=== PATIENT | female | born 1995 | race African-American/Black ===

== ENCOUNTER 2022-12-10 12:32 | Outpatient (OUT) | payer OTHER, SELFPAY ==
--- NOTE | 2022-12-10 12:34 | US_ITS ---
[address] [address] Patient Name: DIYA MITCHELL MRN: [id number] date: 1995 Sex: F Assigned Patient Location: Current Patient Location: US Accession/Order Number: [id number] Exam Date: 12/10/2022 12:36 Report Date: 12/10/2022 19:20 At the request of: ANDRÉS MENDEZ Procedure: US OB <= 14 weeks fetus EXAMINATION: US OB <= 14 weeks fetus HISTORY: Positive test COMPARISON: No relevant comparison available. FINDINGS: GESTATIONAL SAC: Present and normal appearing. YOLK SAC: Present and normal appearing. POLE: Present and normal appearing. CARDIAC: Present. UTERUS: Normal size and appearance. OVARIES: Right: Not seen. Left: Normal. CERVIX: 4.0 cm in length and closed. CUL-DE-SAC: Normal. OTHER: None. AGE BY LMP: Unknown LMP ROHINI BY LMP: AGE BY US CRL: 11 weeks 4 days ROHINI BY US CRL: 06/27/2023 US/US OB <= 14 weeks fetus IMPRESSION: 1. Single live intrauterine 11 weeks 4 days by today's ultrasound. Electronically authenticated by: DAVE MENDOZA Date: 12/10/2022 19:20
== END 2022-12-10 12:33 | disposition home or self-care (01) ==
LOC: US 12:32
PROVIDERS: Visit Provider Obstetrics & Gynecology
DX: N92.5 Other specified irregular menstruation (principal); Z33.1 Pregnant state, incidental
CPT/HCPCS: 76801

== ENCOUNTER 2023-01-27 11:04 | Outpatient (OUT) | payer OTHER, SELFPAY ==
[2023-01-27 11:39] LABS: Basophils Percent Auto 0.5 % (0.2-2.0); Eosinophils Absolute Auto 0.1 10^3/uL (0.0-0.7); Eosinophils Percent Auto 1.6 % (0.9-7.0); Hematocrit 34.4 % (36.0-48.0); Hemoglobin 11.5 g/dL (12.0-16.0); Immature Granulocytes Abs Auto 0.01 10^3/uL (0.00-0.03); Immature Granulocytes Pct Auto 0.1 % (0.0-0.5); Mean Corpuscular HGB Conc 33.4 g/dL (29.9-35.2); Mean Corpuscular Volume 86.9 fL (81.0-99.0); Mean Platelet Volume 10.7 fL (9.5-13.5); Monocytes Absolute Auto 0.5 10^3/uL (0.3-0.8); Monocytes Percent Auto 6.1 % (1.7-12.0); Neutrophils Percent Auto 65.7 % (43.0-75.0); Platelet Count 226 10^3/uL (150-450); Red Blood Count 3.96 10^6/uL (4.20-5.40); Red Cell Distribution Width 12.4 % (11.0-15.0); White Blood Count 7.6 10^3/uL (4.0-11.0)
[2023-01-27 11:46] LABS: Estimated Average Glucose 94 mg/dL; Glycohemoglobin A1C 4.9 % (4.5-6.2)
[2023-01-27 11:48] LABS: BOX Test Sent Out Y
[2023-01-27 12:39] LABS: Thyroid Stimulating Hormone 1.622 uIU/mL (0.358-3.740)
[2023-01-28 06:09] LABS: HBsAg Screen Negative (Negative); HCV Ab Non Reactive (Non Reactive); HIV Ab/p24 Ag Screen Non Reactive (Non Reactive); Rubella Antibodies, IgG 1.57 index (Immune >0.99)
[2023-01-28 12:11] LABS: Rapid Plasma Reagin, Quant Non Reactive titer (NonRea<1:1)
== END 2023-01-27 11:05 | disposition home or self-care (01) ==
LOC: LAB 11:08
PROVIDERS: Visit Provider Obstetrics & Gynecology
DX: Z34.80 Encounter for supervision of other normal pregnancy, unspecified trimester (principal); Z12.4 Encounter for screening for malignant neoplasm of cervix; N92.6 Irregular menstruation, unspecified
CPT/HCPCS: 36415; 83036; 84443; 85025; 86592; 86762; 86803; 86850; 86900; 86901; 87086; 87150; 87186; 87340; 87389; G0145

== ENCOUNTER 2023-01-27 20:47 | Outpatient (REF) | payer OTHER, SELFPAY ==
[2023-02-03 14:09] LABS: Age Gdln ACOG Testing Note (.); IGP, rfx Aptima HPV ASCU Note (.)
== END 2023-01-27 20:48 | disposition home or self-care (01) ==
LOC: LAB 20:47
PROVIDERS: Visit Provider Obstetrics & Gynecology
DX: Z12.4 Encounter for screening for malignant neoplasm of cervix (principal)
CPT/HCPCS: G0145

== ENCOUNTER 2023-02-24 12:34 | Outpatient (OUT) | payer OTHER, SELFPAY ==
--- NOTE | 2023-02-24 13:01 | US_ITS ---
[address] [address] Patient Name: DIYA MITCHELL MRN: [id number] date: 1995 Sex: F Assigned Patient Location: US Current Patient Location: Accession/Order Number: [id number] Exam Date: 02/24/2023 13:02 Report Date: 02/25/2023 07:19 At the request of: ANDRÉS MENDEZ Procedure: US OB anatomy EXAMINATION: US OB anatomy, US OB transvaginal HISTORY: Second Trimester Z34.92 COMPARISON: No relevant comparison available. TECHNIQUE: Transabdominal sonographic examination was performed for obstetrical and evaluation. FINDINGS: Number: 1 Heart Rate: 140.6 bpm H.B. /min Amniotic Fluid Volume: Subjectively normal position: Cephalic presentation, longitudinal lie Placental Location: Anterior fundal, grade 0. Placental edge 10 cm from the internal cervical os Cervix Length: 4.9 cm ] Normal anatomy: Lateral ventricles, cerebellum, posterior fossa, nose, lips, orbits, four-chamber heart, RVOT, LVOT, diaphragm, stomach, kidneys, abdominal cord insertion, bladder, umbilical arteries, three-vessel cord, spine, extremities BIOMETRY: BPD: 5.9 cm 24 weeks 0 days , 93% HC: 21.6 cm 23 weeks 4 days, 83% AC: 21.1 cm 25 weeks 4 days, > 97% FL: 4.1 cm 23 weeks 2 days, 69% EFW:701.4 grams; 1 lb. 9 oz., > 97% FL/AC: 19.5 FL/BPD: 70.0 HC/AC: 1.0 GESTATIONAL AGE: Age by EDC: 22 weeks 3 days ROHINI by EDC: 06/27/2023 Age by current US: 24 weeks 1 days ROHINI by current US: 06/15/2023 US/US OB anatomy IMPRESSION: Normal anatomy scan Closed cervix measuring 4.9 cm in length *Reference: [facility] Practice Guideline for the performance of Obstetric Ultrasound Examinations, February 07, 2007. Electronically authenticated by: HEAVEN ROOT Date: 02/25/2023 07:19
--- NOTE | 2023-02-24 13:02 | US_ITS ---
[address] [address] Patient Name: DIYA MITCHELL MRN: [id number] date: 1995 Sex: F Assigned Patient Location: US Current Patient Location: Accession/Order Number: [id number] Exam Date: 02/24/2023 13:02 Report Date: 02/25/2023 07:19 At the request of: ANDRÉS MENDEZ Procedure: US OB transvaginal EXAMINATION: US OB anatomy, US OB transvaginal HISTORY: Second Trimester Z34.92 COMPARISON: No relevant comparison available. TECHNIQUE: Transabdominal sonographic examination was performed for obstetrical and evaluation. FINDINGS: Number: 1 Heart Rate: 140.6 bpm H.B. /min Amniotic Fluid Volume: Subjectively normal position: Cephalic presentation, longitudinal lie Placental Location: Anterior fundal, grade 0. Placental edge 10 cm from the internal cervical os Cervix Length: 4.9 cm ] Normal anatomy: Lateral ventricles, cerebellum, posterior fossa, nose, lips, orbits, four-chamber heart, RVOT, LVOT, diaphragm, stomach, kidneys, abdominal cord insertion, bladder, umbilical arteries, three-vessel cord, spine, extremities BIOMETRY: BPD: 5.9 cm 24 weeks 0 days , 93% HC: 21.6 cm 23 weeks 4 days, 83% AC: 21.1 cm 25 weeks 4 days, > 97% FL: 4.1 cm 23 weeks 2 days, 69% EFW:701.4 grams; 1 lb. 9 oz., > 97% FL/AC: 19.5 FL/BPD: 70.0 HC/AC: 1.0 GESTATIONAL AGE: Age by EDC: 22 weeks 3 days ROHINI by EDC: 06/27/2023 Age by current US: 24 weeks 1 days ROHINI by current US: 06/15/2023 US/US OB transvaginal IMPRESSION: Normal anatomy scan Closed cervix measuring 4.9 cm in length *Reference: [facility] Practice Guideline for the performance of Obstetric Ultrasound Examinations, February 07, 2007. Electronically authenticated by: HEAVEN ROOT Date: 02/25/2023 07:19
[2023-08-06 11:00] LABS: Gest. Age on Collection Date 22.4 weeks; Results Report
[2023-08-06 11:02] LABS: Insulin Dep Diabetes No; OSBR Risk 1 IN 10000
== END 2023-02-24 12:35 | disposition home or self-care (01) ==
LOC: US 12:36
PROVIDERS: Visit Provider Obstetrics & Gynecology
DX: Z34.92 Encounter for supervision of normal pregnancy, unspecified, second trimester (principal); Z3A.22 22 weeks gestation of pregnancy
CPT/HCPCS: 36415; 76805; 76817; 82105

== ENCOUNTER 2023-04-07 12:11 | Outpatient (OUT) | payer OTHER, SELFPAY ==
[2023-04-07 13:46] LABS: Glucose 1 Hour 179 mg/dL
== END 2023-04-07 12:12 | disposition home or self-care (01) ==
PROVIDERS: Visit Provider Obstetrics & Gynecology
DX: Z34.92 Encounter for supervision of normal pregnancy, unspecified, second trimester (principal)
CPT/HCPCS: 36415; 82950

== ENCOUNTER 2023-05-19 12:21 | Outpatient (OUT) | payer OTHER, SELFPAY ==
--- OUTSIDE RECORDS SUMMARY | 2023-05-19 12:24 | XMS_ITS | CCD ---
Author Name Unknown Address [address] [place] [address] Organization [facility] Care Team Providers Care Boat Designer Name Role Phone ELENI .SHANTEL Admitting Unavailable ELENI ., SHANTEL Attending Unavailable [facility] Primary Care Unava ilable ELENI Robbins, SHANTEL Consulting Unavailable RENZO COE Consulting Unavailable VANESSA ., DR BOWEN Admitting Unavailable VANESSA ., DR BOWEN Attending Unavailable [facility], DR JARAMILLO Primary Care Unavailable VANESSA ., DR BOWEN Consulting Unavailable LIBBY ALAN Attending Unavailable ANDRÉS MENDEZ Attending Unavailable LIBBY ALAN Attending Unavailable Problems Active Problems Problem Classification Problem Date Documented Date Episodic/Chronic Disorders of teeth and jaw (1 source) Left temporomandibular joint disorder, unspecified; Translations: [LEFT TEMPOROMANDIBULAR JNT D/O UNS] Onset: 09-21-2022 Episodic Headache; including migraine (3 sources) Headache; including migraine; Translations: [HEADACHE UNSPECIFIED] Onset: 09-17-2022 Miscellaneous mental health disorders (1 source) Other somatoform disorders; Translations: [OTHER SOMATOFORM DISORDERS] Onset: 09-21-2022 Chronic Past or Other Problems Problem Classification Problem Date Documented Date Episodic/Chronic Immunizations and screening for infectious disease (1 source) Encounter for screening for human papillomavirus (HPV); Translations: [ENC SCREENING HUMAN PAPILLOMAVIRUS] Onset: 02-05-2022 Episodic Other screening for suspected conditions (not mental disorders or infectious disease) (4 sources) Encounter for screening for malignant neoplasm of cervix; Translations: [ENC SCREENING MALIG NEOPLASM CERV] Onset: 02-04-2022 Episodic Results Test Name Value Interpretation Reference Range Facil ity CT NECK ST W CONon CT NECK ST W CON EXAMINATION: CT NECK ST W CON HISTORY: Pain COMPARISON: None. TECHNIQUE: CT examination of the soft tissues of the neck following the administration of intravenous contrast. Coronal and sagittal reformations were performed. Dose reduction techniques were achieved by using automated exposure control and/or adjustment of mA and/or kV according to patient size and/or use of iterative reconstruction technique. FINDINGS: Visualized brain: Unremarkable. Paranasal sinuses: Unremarkable. Vascular structures: Unremarkable. Pharynx: Unremarkable. Larynx: Unremarkable. Salivary Glands: Unremarkable. Parotid Gland: Unremarkable. Thyroid: Unremarkable. Lymph nodes: Unremarkable. Bones: Unremarkable. Soft tissues: Unremarkable. Upper chest: Unremarkable. IMPRESSION: 1. No acute abnormality of the neck. Electronically authenticated by: RENZO COE Date: 2022-09-17 10:11 Normal [facility] GROUP A STREP CULTUREon 09-07 S. pyogenes Ag Ql (Unsp spec) Culture Observations: NEGATIVE FOR GROUP A STREPTOCOCCUS. Normal [facility] Comment on above: Performed By: #### S SCRN, GRASTCX #### [facility] [address] [place] [address] Dr. Gordo Cabrera STREPT SCREENon 09-17-2022 STREP SCREEN A Negative Normal NEGATIVE [facility] Comment on above: Performed By: #### S SCRN, GRASTCX #### [facility] [address] [place] [address] Dr. Gordo Cabrera PAP ACOG PANEL 2: 21 to 29on 02-14-2022 . . Normal [facility] Comment on above: Performed By: #### [id number] #### [facility] [address] [place] [address] Dr. Gordo Cabrera Age Gdln ACOG Testing - Normal [facility] Comment on above: Performed By: #### 4 [id number] #### [facility] [address] [place] [address] Dr. Gordo Cabrera DIAGNOSIS: Comment Abnormal [facility] Comment on above: Result Comment: EPIT HELIAL CELL ABNORMALITY. ATYPICAL SQUAMOUS CELLS OF UNDETERMINED SIGNIFICANCE (ASC-US). FUNGAL ORGANISMS MORPHOLOGICALLY CONSISTENT WITH MANAV SPECIES ARE PRESENT. Performed By: #### [id number] #### [facility] [address] [place] [address] Dr. Gordo Cabrera Electronically signed by: Comment Normal [facility] Comment on above: Result Comment: Joann Harding MD, Pathologist Performed By: #### [id number] #### [facility] [address] [place] [address] Dr. Gordo Cabrera HPV Aptima Negative Normal Negative [facility] Comment on above: Result Comment: This nucleic acid amplification test detects fourteen high-risk HPV types (16,18,31,33,35,39,45,51,52,56,58,59,66,68) without differentiation. Performed By: #### 4 [id number] #### [facility] [address] [address] [address] Gordo Cabrera Methodology: Comment Normal [facility] Comment on above: Result Comment: This liquid based ThinPrep(R) pap test was screened with the use of an image guided system. Performed By: #### 4 [id number] #### [facility] [address] [place] [address] Dr. Gordo Cabrera Note: Comment Normal [facility] Comment on above: Result Comment: The Pap smear is a screening test designed to aid in the detection of premalignant and malignant conditions of the uterine cervix. It is not a diagnostic procedure and should not be used as the sole means of detecting cervical cancer. Both false-positive and false-negative reports do occur. . Performed By: #### 4 [id number] #### [facility] [address] [place] [address] Dr. Gordo Cabrera Pathologist Provided ICD10 Comment Normal [facility] Comment on above: Result Comment: R87. 610, R87.5 Performed By: #### 4 [id number] #### [facility] [address] [place] [address] Dr. Gordo Cabrera Performed by: Comment Normal [facility] Comment on above: Result Comment: Julieta Infante, Site Specialist (ASCP) Performed By: #### 4 [id number] #### [facility] [address] [place] [address] Dr. Gordo Cabrera Recommendation: Comment Abnormal [facility] Comment on above: Result Comment: Sugg est follow up as clinically appropriate. Performed By: #### 4 [id number] #### [facility] [address] [place], [place] [address] Dr. Gordo Cabrera Reflex Criteria: Comment Normal [facility] Comment on above: Result Comment: See below for HPV testing results. . Performed By: #### 4 [id number] #### [facility] [address] [place], [place] [address] Dr. Gordo Cabrera Specimen adequacy: Comment Normal [facility] Comment on above: Result Comment: Sati sfactory for evaluation. Endocervical and/or squamous metaplastic cells (endocervical component) are present. Performed By: #### 4 [id number] #### [facility] [address] [place], [place] [address] Dr. Gordo Cabrera Encounters Encounter Date Encounter Type Care Provider Facility Start: 05-06-2023 End: 05-06-2023 ambulatory LIBBY ALAN Not Available Start: 04-07-2023 End: 04-07-2023 ambulatory LIBBY ALAN Not Available Start: 03-24-2023 End: 03-24-2023 ambulatory ANDRÉS MENDEZ Not Available Start: 09-17-2022 End: 09-17-2022 ambulatory SHANTEL KNOWLES . Facility: Start: 02-04-2022 End: 02-04-[address] ANDRÉS MENDEZ . Facility: Payers Date Payer Category Payer Unknown [id number] 2.16.84 [id number] 1995 Unknown [id number] 2.16.84 [id number] 1995 Unknown [id number] 1995 Unknown [id number] 1995 Unknown [id number] 1960 Unknown [id number] Summary Purpose Family History No Family History Records FoundNo Family History Records Found Advance Directives No Advanced Directives Records FoundNo Advanced Directives Records Found Additional Source Comments INFORMATION SOURCE (unrecogn ized section and content) DATE CREATED AUTHOR 09/21/2022 [employer] [facility] DATE CREATED AUTHOR AUTHOR'S REESE PALENCIA 05/08/2023 [facility] dical Specialists EPIC FOR RECORDS PERTAINING TO PATIENTS WHO ARE OR HAVE BEEN ENROLLED IN A CHEMICAL DEPENDENCY/SUBSTANCEABUSE PROGRAM, SOME INFORMATION MAY BE OMITTED. This clinical summary was aggregated from multiple sources. Caution should be exercised in using it in the provision of clinical care. This summary normalizes information from multiple sources, and as a consequence, information in this document may materially change the coding, format and clinical context of patient data. In addition, data may be omitted in some cases. CLINICAL DECISIONS SHOULD BE BASED ON THE PRIMARY CLINICAL RECORDS. [facility] [employer] provides no warranty or guarantee of the accuracy or completeness of information in this document.
[2023-05-19 12:35] LABS: Basophils Percent Auto 0.3 % (0.2-2.0); Eosinophils Percent Auto 0.6 % (0.9-7.0); Hematocrit 28.5 % (36.0-48.0); Hemoglobin 9.2 g/dL (12.0-16.0); Immature Granulocytes Abs Auto 0.03 10^3/uL (0.00-0.03); Immature Granulocytes Pct Auto 0.4 % (0.0-0.5); Lymphocytes Absolute Auto 1.7 10^3/uL (1.2-3.8); Mean Corpuscular HGB Conc 32.3 g/dL (29.9-35.2); Mean Corpuscular Hemoglobin 24.6 pg (26.7-34.0); Mean Corpuscular Volume 76.2 fL (81.0-99.0); Mean Platelet Volume 10.5 fL (9.5-13.5); Monocytes Absolute Auto 0.5 10^3/uL (0.3-0.8); Monocytes Percent Auto 7.8 % (1.7-12.0); Neutrophils Absolute Auto 4.6 10^3/uL (1.4-6.5); Neutrophils Percent Auto 65.9 % (43.0-75.0); Platelet Count 194 10^3/uL (150-450); Red Blood Count 3.74 10^6/uL (4.20-5.40); Red Cell Distribution Width 13.3 % (11.0-15.0); White Blood Count 6.9 10^3/uL (4.0-11.0)
[2023-05-19 14:23] LABS: Estimated Average Glucose 114 mg/dL; Glycohemoglobin A1C 5.6 % (4.5-6.2)
== END 2023-05-19 12:22 | disposition home or self-care (01) ==
LOC: LAB 12:21
PROVIDERS: Visit Provider Physician Assistant
DX: Z34.92 Encounter for supervision of normal pregnancy, unspecified, second trimester (principal)
CPT/HCPCS: 36415; 83036; 85025

== ENCOUNTER 2023-05-20 07:04 | Outpatient (OUT) | payer OTHER, SELFPAY ==
--- NOTE | 2023-05-20 | US_ITS ---
[address] [address] Patient Name: DIYA MITCHELL MRN: [id number] date: 1995 Sex: F Assigned Patient Location: US Current Patient Location: US Accession/Order Number: [id number] Exam Date: 05/20/2023 19:20 Report Date: 05/21/2023 07:15 At the request of: LIBBY ALAN Procedure: US OB BPP w non-stress EXAMINATION: US OB BPP w non-stress HISTORY: EXCESSIVE GROWTH O36.63X0 COMPARISON: No relevant comparison available. TECHNIQUE: Ultrasound biophysical profile was performed in the radiology department. FINDINGS: BREATHING MOVEMENTS: 2.0 GROSS BODY MOVEMENTS: 2.0 TONE: 2.0 QUALITATIVE AMNIOTIC FLUID VOLUME: 2.0 PRESENTATION: CEPHALIC HEART RATE: 122.2 bpm H.B./min AMNIOTIC FLUID VOLUME: 12.3 cm cm GESTATIONAL AGE: 34 weeks 4 days CONCLUSION: Total biophysical profile score: 8.0 Electronically authenticated by: HEAVEN ROOT Date: 05/21/2023 07:15
--- OUTSIDE RECORDS SUMMARY | 2023-05-20 07:06 | XMS_ITS | CCD ---
Author Name Unknown Address [address] [place] [address] Organization [facility] Care Team Providers Care Gaming Cage Cashier Name Role Phone ELENI .SHANTEL Admitting Unavailable ELENI ., SHANTEL Attending Unavailable [facility], [facility] Primary Care Unava ilable ELENI Robbins, SHANTEL Consulting Unavailable RENZO COE Consulting Unavailable VANESAS ., DR BOWEN Admitting Unavailable VANESSA ., DR BOWEN Attending Unavailable [facility] JARAMILLO Primary Care Unavailable VANESSA ., [...] by: RENZO COE Date: 2022-09-17 10:[address] [facility] GROUP A STREP CULTUREon 09-07 S. pyogenes Ag Ql (Unsp spec) Culture Observations: NEGATIVE FOR GROUP A STREPTOCOCCUS. Normal [facility] Comment on above: Performed By: #### S SCRN, GRASTCX #### [facility] [address] [place] [address] Dr. Gordo Cabrera STREPT SCREENon 09-17-2022 STREP SCREEN A Negative Normal NEGATIVE [facility] Comment on above: Performed By: #### S SCRN, GRASTCX #### [facility] [address] [place] [address] Dr. Gordo Cabrera PAP ACOG PANEL 2: 21 to 29on 02-14-2022 . . Normal [facility] Comment on above: Performed By: #### [id number] #### [facility] [address] [place] [address] Dr. Gordo Cabrera Age Gdln ACOG Testing - Normal [facility] Comment on above: Performed By: #### 4 [id number] #### [facility] [address] [place] [address] Dr. Gordo Cabrera DIAGNOSIS: Comment Abnormal [facility] Comment on above: Result Comment: EPIT HELIAL CELL ABNORMALITY. ATYPICAL SQUAMOUS CELLS OF UNDETERMINED SIGNIFICANCE (ASC-US). FUNGAL ORGANISMS MORPHOLOGICALLY CONSISTENT WITH MANAV SPECIES ARE PRESENT. Performed By: #### 4 [id number] #### [facility] [address] [place] [address] Dr. Gordo Cabrera Electronically signed by: Comment Normal [facility] Comment on above: Result Comment: Joann Harding MD, Pathologist Performed By: #### 4 [id number] #### [facility] [address] [place] [address] Dr. Gordo Cabrera HPV Aptima Negative Normal Negative [facility] Comment on above: Result Comment: This nucleic acid amplification test detects fourteen high-risk HPV types (16,18,31,33,35,39,45,51,52,56,58,59,66,68) without differentiation. Performed By: #### 4 [id number] #### [facility] [address] [address] [address] Gordo Cabrera Methodology: Comment Normal [facility] Comment on above: Result Comment: This liquid based ThinPrep(R) pap test was screened with the use of an image guided system. Performed By: #### 4 [id number] #### [facility] [address] [place] [address] Dr. Gordo Cabrera Note: Comment Normal [facility] Comment on above: Result Comment: The Pap smear is a screening test designed to aid in the detection of premalignant and malignant conditions of the uterine cervix. It is not a diagnostic procedure and should not be used as the sole means of detecting cervical cancer. Both false-positive and false-negative reports do occur. . Performed By: #### 4 [id number] #### [facility] [address] [place] [address] Dr. Gordo Cabrera Pathologist Provided ICD10 Comment Normal [facility] Comment on above: Result Comment: R87. 610, R87.5 Performed By: #### 4 [id number] #### [facility] [address] [place] [address] Dr. Gordo Cabrera Performed by: Comment Normal [facility] Comment on above: Result Comment: Julieta Infante, Night Assistant (ASCP) Performed By: #### 4 [id number] #### [facility] [address] [place] [address] Dr. Gordo Cabrera Recommendation: Comment Abnormal [facility] Comment on above: Result Comment: Sugg est follow up as clinically appropriate. Performed By: #### 4 [id number] #### [facility] [address] [place], [place] [address] Dr. Gordo Cabrera Reflex Criteria: Comment Normal [facility] Comment on above: Result Comment: See below for HPV testing results. . Performed By: #### 4 [id number] #### [facility] [address] [place], [place] [address] Dr. Gordo Cabrera Specimen adequacy: Comment Normal [facility] Comment on above: Result Comment: Sati sfactory for evaluation. Endocervical and/or squamous metaplastic cells (endocervical component) are present. Performed By: #### 4 [id number] #### [facility] [address] [place], [place] [address] Dr. Gordo Cabrera Encounters Encounter Date Encounter Type Care Provider Facility Start: 05-06-2023 End: 05-06-2023 ambulatory LIBBY ALAN Not Available Start: 04-07-2023 End: 04-07-2023 ambulatory LIBBY ALAN Not Available Start: 03-24-2023 End: 03-24-2023 ambulatory ANDRÉS MENDEZ Not Available Start: 09-17-2022 End: 09-17-2022 ambulatory SHANTEL KNOWLES . Facility: Start: 02-04-2022 End: 02-04-[address] ANDRÉS MENDEZ . Facility: Payers Date Payer Category Payer Unknown [id number] 2.16.84 [id number] 1995 Unknown [id number] 2.16.84 [id number] 1995 Unknown [id number] 1995 Unknown [id number] 1995 Unknown [id number]. [id number] 1960 Unknown [id number] Summary Purpose Family History No Family History Records FoundNo Family History Records Found Advance Directives No Advanced Directives Records FoundNo Advanced Directives Records Found Additional Source Comments INFORMATION SOURCE (unrecogn ized section and content) DATE CREATED AUTHOR 09/21/2022 [employer] [facility] DATE CREATED AUTHOR AUTHOR'S REESE PALENCIA 05/08/2023 [facility] dical Specialists EPIC FOR RECORDS PERTAINING [...] BE BASED ON THE PRIMARY CLINICAL RECORDS. [facility] [employer] provides no warranty or guarantee of the accuracy or completeness of information in this document.
[2023-05-20 19:51] VITALS: BP 123/66; PULSE 83; RESP 18
== END 2023-05-20 20:30 | disposition home or self-care (01) ==
LOC: US 07:04 → FBC 20:03
PROVIDERS: Visit Provider Physician Assistant
DX: O36.63X0 Maternal care for excessive fetal growth, third trimester, not applicable or unspecified (principal); Z3A.34 34 weeks gestation of pregnancy
CPT/HCPCS: 76818; 80307; 85027; 86850; 86900; 86901

== ENCOUNTER 2023-05-26 07:08 | Outpatient (OUT) | payer OTHER, SELFPAY ==
--- OUTSIDE RECORDS SUMMARY | 2023-05-26 07:10 | XMS_ITS | CCD ---
Author Name Unknown Address [address] [place] [address] Organization [facility] Care Team Providers Care Construction Grip Name Role Phone ELENI .SHANTEL Admitting Unavailable ELENI ., SHANTEL Attending Unavailable [facility] Primary Care Unava ilable SHANTEL HARDEN Consulting Unavailable RENZO COE Consulting Unavailable VANESSA ., DR BOWEN Admitting Unavailable VANESSA ., DR BOWEN Attending Unavailable [facility], DR JARAMILLO Primary Care Unavailable VANESSA ., [...] RENZO CAROLIN Date: 2022-09-17 10:11 Normal [facility] GROUP A STREP CULTUREon 09-07 S. pyogenes Ag Ql (Unsp spec) Culture Observations: NEGATIVE FOR GROUP A STREPTOCOCCUS. Normal [facility] Comment on above: Performed By: #### Hai REID GRASTCX #### [facility] [address] [place] [address] Dr. Gordo Cabrera STREPT SCREENon 09-17-2022 STREP SCREEN A Negative Normal NEGATIVE [facility] Comment on above: Performed By: #### Hai REID GRASTCX #### [facility] [address] [place] [address] Dr. Gordo Cabrera PAP ACOG PANEL 2: 21 to 29on 02-14-2022 . . Normal [facility] Comment on above: Performed By: #### 4 [id number] #### [facility] [address] [place] [address] Dr. Gordo Cabrera Age Gdln ACOG Testing - Normal [facility] Comment on above: Performed By: #### 4 [id number] #### [facility] [address] [place] [address] Dr. Gordo Cabrera DIAGNOSIS: Comment Abnormal [facility] Comment on above: Result Comment: EPIT HELIAL CELL ABNORMALITY. ATYPICAL SQUAMOUS CELLS OF UNDETERMINED SIGNIFICANCE (ASC-US). FUNGAL ORGANISMS MORPHOLOGICALLY CONSISTENT WITH MANAV SPECIES ARE PRESENT. Performed By: #### 4 [id number] #### [facility] [address] [place] [address] Dr. Gordo Cabrera Electronically signed by: Comment Normal [facility] Comment on above: Result Comment: Joann Harding MD, Pathologist Performed By: #### 4 [id number] #### [facility] [address] [address] [address] Gordo Cabrera HPV Aptima Negative Normal Negative [facility] Comment on above: Result Comment: This nucleic acid amplification test detects fourteen high-risk HPV types (16,18,31,33,35,39,45,51,52,56,58,59,66,68) without differentiation. Performed By: #### 4 [id number] #### [facility] [address] [address] [address] Gordo Cabrera Methodology: Comment Normal [facility] Comment on above: Result Comment: This liquid based ThinPrep(R) pap test was screened with the use of an image guided system. Performed By: #### 4 [id number] #### [facility] [address] [place] [address] Dr. Gordo Cabrera Note: Comment Normal [facility] Comment on above: Result Comment: The Pap smear is a screening test designed to aid in the detection of premalignant and malignant conditions of the uterine cervix. It is not a diagnostic procedure and should not be used as the sole means of detecting cervical cancer. Both false-positive and false-negative reports do occur. . Performed By: #### 4 [id number] #### [facility] [address] [place] [address] Dr. Gordo Cabrera Pathologist Provided ICD10 Comment Normal [facility] Comment on above: Result Comment: R87. 610, R87.5 Performed By: #### 4 [id number] #### [facility] [address] [place] [address] Dr. Gordo Cabrera Performed by: Comment Normal [facility] Comment on above: Result Comment: Julieta Infante, Toe Closing Machine Tender (ASCP) Performed By: #### 4 [id number] #### [facility] [address] [place] [address] Dr. Gordo Cabrera Recommendation: Comment Abnormal [facility] Comment on above: Result Comment: Sugg est follow up as clinically appropriate. Performed By: #### 4 [id number] #### [facility] [address] [place], [place] [address] Dr. Gordo Cabrera Reflex Criteria: Comment Normal [facility] Comment on above: Result Comment: See below for HPV testing results. . Performed By: #### 4 [id number] #### [facility] [address] [place], [place] [address] Dr. Gordo Cabrera Specimen adequacy: Comment Normal [facility] Comment on above: Result Comment: Sati sfactory for evaluation. Endocervical and/or squamous metaplastic cells (endocervical component) are present. Performed By: #### 4 [id number] #### [facility] [address] [place], [place] [address] Dr. Gordo Cabrera Encounters Encounter Date Encounter [...] Facility: Payers Date Payer Category Payer Unknown [id number] 2.16.84 [id number] 1994 Unknown [id number] 2.16.84 [id number] 1994 Unknown [id number] 2.16.84 [id number] 1994 Unknown [id number] 2.16.840 .[id number] 1994 Unknown [id number] 2.16.840 .[id number] 1994 Unknown [id number] 2.16.840. [id number] 1959 Unknown [id number] Summary Purpose Family History No Family History Records FoundNo Family History Records Found Advance Directives No Advanced Directives Records FoundNo Advanced Directives Records Found Additional Source Comments INFORMATION SOURCE (unrecogn ized section and content) DATE CREATED AUTHOR 09/21/2022 [facility] DATE CREATED AUTHOR AUTHOR'S ORGANIZ ATION 05/20/2023 [facility] dical Specialists EPIC FOR RECORDS PERTAINING [...] BE BASED ON THE PRIMARY CLINICAL RECORDS. [facility] [employer] provides no warranty or guarantee of the accuracy or completeness of information in this document.
[2023-05-26 07:44] LABS: Glucose Fasting 94 mg/dL (74-106)
[2023-05-26 08:57] LABS: Glucose 1 Hour 198 mg/dL
[2023-05-26 09:50] LABS: Glucose 2 Hour 193 mg/dL (<155)
[2023-05-26 10:41] LABS: Glucose 3 Hour 102 mg/dL (<140)
--- NOTE | 2023-05-26 10:55 | US_ITS ---
[address] [address] Patient Name: DIYA MITCHELL MRN: [id number] date: 1995 Sex: F Assigned Patient Location: [facility] Current Patient Location: [facility] Accession/Order Number: [id number] Exam Date: 05/26/2023 10:56 Report Date: 05/26/2023 11:30 At the request of: ANDRÉS MENDEZ Procedure: US OB growth EXAMINATION: US OB growth HISTORY: EXCESSIVE GROWTH O36.63X0 COMPARISON: No relevant comparison available. FINDINGS: Heart Rate: 126.8 bpm Amniotic Fluid Volume: 11.3 cm Number: 1.0 Position: Cephalic presentation, longitudinal lie Maximum Vertical Pocket: 0.3 cm cm 3.6 cm cm 4.4 cm cm 2.9 cm cm BIOMETRY: BPD: 8.7 cm cm; 35 weeks 2 days; 52% HC: 32.3 cmcm; 36 weeks 4 days , 45% AC: 35.5 cm cm; 39 weeks 3 days, greater than 97% FL: 7.4 cm cm; 38 weeks 0 days; 94.0 % % EFW: 3433.0 grams, 7 lbs. 9 oz., greater than 97% FL/AC: 20.9 FL/BPD: 84.8 HC/AC: 0.9 GESTATIONAL AGE: Age by EDC: 35 weeks 3 days ROHINI by EDC: 06/27/2023 Age by US: 37 weeks 2 days ROHINI by US: 06/14/2023 US/US OB growth IMPRESSION: Large for gestational age. Estimated weight greater than the 97th percentile Electronically authenticated by: HEAVEN ROOT Date: 05/26/2023 11:30
--- NOTE | 2023-05-26 10:55 | US_ITS ---
[address] [address] Patient Name: DIYA MITCHELL MRN: [id number] date: 1995 Sex: F Assigned Patient Location: [facility] Current Patient Location: [facility] Accession/Order Number: [id number] Exam Date: 05/26/2023 10:56 Report Date: 05/26/2023 11:28 At the request of: ANDRÉS MENDEZ Procedure: US OB BPP w non-stress EXAMINATION: US OB BPP w non-stress HISTORY: EXCESSIVE GROWTH O36.63X0 COMPARISON: No relevant comparison available. TECHNIQUE: Ultrasound biophysical profile was performed in the radiology department. FINDINGS: BREATHING MOVEMENTS: 2.0 GROSS BODY MOVEMENTS: 2.0 TONE: 2.0 QUALITATIVE AMNIOTIC FLUID VOLUME: 2.0 PRESENTATION: CEPHALIC HEART RATE: 126.8 bpm H.B./min AMNIOTIC FLUID VOLUME: 11.3 cm cm GESTATIONAL AGE: 35 weeks 3 days CONCLUSION: Total biophysical profile score: 8.0 Electronically authenticated by: HEAVEN ROOT Date: 05/26/2023 11:28
[2023-05-26 11:20] VITALS: BP 131/82; PULSE 81
== END 2023-05-26 11:46 | disposition home or self-care (01) ==
LOC: LAB 07:08 → FBC 10:51
PROVIDERS: Visit Provider Obstetrics & Gynecology
DX: Z34.93 Encounter for supervision of normal pregnancy, unspecified, third trimester (principal); Z3A.35 35 weeks gestation of pregnancy
CPT/HCPCS: 36415; 76816; 76818; 82951; 82952

== ENCOUNTER 2023-05-31 07:41 | Outpatient (OUT) | payer OTHER, SELFPAY ==
--- OUTSIDE RECORDS SUMMARY | 2023-05-24 07:14 | XMS_ITS | CCD ---
Author Name Unknown Address [address] [place] [address] Organization [facility] Care Team Providers Care Ball Warper Tender Name Role Phone ELENI .SHANTEL Admitting Unavailable ELENI ., SHANTEL Attending Unavailable [facility] Primary Care Unava ilable SHANTEL HARDEN Consulting Unavailable RENZO COE Consulting Unavailable VANESSA ., DR BOWEN Admitting Unavailable VANESSA ., DR BOWEN Attending Unavailable [facility], DR JARAMILLO Primary Care Unavailable VANESSA ., DR BOWEN Consulting Unavailable LIBBY ALAN Attending Unavailable ANDRÉS MENDEZ Attending Unavailable ANDRÉS MENDEZ Attending Unavailable LIBBY AALN Attending Unavailable Problems Active Problems Problem Classification [...] of the neck. Electronically authenticated by: RENZO CAROLIN Date: 2022-09-17 10:11 Normal The [facility] GROUP A STREP CULTUREon 09-07 S. pyogenes Ag Ql (Unsp spec) Culture Observations: NEGATIVE FOR GROUP A STREPTOCOCCUS. Normal [facility] Comment on above: Performed By: #### Hai REID GRASTCX #### [facility] [address] [place] [address] Dr. Gordo Cabrera STREPT SCREENon 09-17-2022 STREP SCREEN A Negative Normal NEGATIVE [facility] Comment on above: Performed By: #### Hai REID GRASTCX #### [facility] [address] [place] [address] Dr. Gordo Cabrera PAP ACOG PANEL 2: 21 to 29on 02-14-2022 . . Normal [facility] Comment on above: Performed By: #### 4 [id number] #### [facility] [address] [place] [address] Dr. Gordo Cabrera Age Gdln ACOG Testing - Normal [facility] Comment on above: Performed By: #### 4 [id number] #### [facility] [address] [place] [address] Dr. Gordo Cabrera DIAGNOSIS: Comment Abnormal [facility] Comment on above: Result Comment: EPIT HELIAL CELL ABNORMALITY. ATYPICAL SQUAMOUS CELLS OF UNDETERMINED SIGNIFICANCE (ASC-US). FUNGAL ORGANISMS MORPHOLOGICALLY CONSISTENT WITH MANAV SPECIES ARE PRESENT. Performed By: #### 4 [id number] #### [facility] [address] [place] [address] Dr. Gordo Cabrera Electronically signed by: Comment Normal [facility] Comment on above: Result Comment: Joann Harding MD, Pathologist Performed By: #### 4 [id number] #### [facility] [address] [address] [address] Gordo Cabrera HPV Aptima Negative Normal Negative [facility] Comment on above: Result Comment: This nucleic acid amplification test detects fourteen high-risk HPV types (16,18,31,33,35,39,45,51,52,56,58,59,66,68) without differentiation. Performed By: #### 4 [id number] #### [facility] [address] [address] [address] Gordo Cabrera Methodology: Comment Normal [facility] Comment on above: Result Comment: This liquid based ThinPrep(R) pap test was screened with the use of an image guided system. Performed By: #### 4 [id number] #### [facility] [address] [place] [address] Dr. Gordo Cabrera Note: Comment Normal [facility] Comment on above: Result Comment: The Pap smear is a screening test designed to aid in the detection of premalignant and malignant conditions of the uterine cervix. It is not a diagnostic procedure and should not be used as the sole means of detecting cervical cancer. Both false-positive and false-negative reports do occur. . Performed By: #### 4 [id number] #### [facility] [address] [place] [address] Dr. Gordo Cabrera Pathologist Provided ICD10 Comment Normal [facility] Comment on above: Result Comment: R87. 610, R87.5 Performed By: #### 4 [id number] #### [facility] [address] [place] [address] Dr. Gordo Cabrera Performed by: Comment Normal [facility] Comment on above: Result Comment: Julieta Infante, Fitness Attendant (ASCP) Performed By: #### 4 [id number] #### [facility] [address] [place] [address] Dr. Gordo Cabrera Recommendation: Comment Abnormal [facility] Comment on above: Result Comment: Sugg est follow up as clinically appropriate. Performed By: #### 4 [id number] #### [facility] [address] [place], [place] [address] Dr. Gordo Cabrera Reflex Criteria: Comment Normal [facility] Comment on above: Result Comment: See below for HPV testing results. . Performed By: #### 4 [id number] #### [facility] [address] [place], [place] [address] Dr. Gordo Cabrera Specimen adequacy: Comment Normal [facility] Comment on above: Result Comment: Sati sfactory for evaluation. Endocervical and/or squamous metaplastic cells (endocervical component) are present. Performed By: #### 4 [id number] #### [facility] [address] [place], [place] [address] Dr. Gordo Cabrera Encounters Encounter Date Encounter Type Care Provider Facility Start: 05-19-2023 End: 05-19-2023 ambulatory ANDRÉS MENDEZ Not Available Start: 05-06-2023 End: 05-06-2023 ambulatory LIBBY ALAN Not Available Start: 04-07-2023 End: 04-07-2023 ambulatory LIBBY ALAN Not Available Start: 03-24-2023 End: 03-24-2023 ambulatory ANDRÉS MENDEZ Not Available Start: 09-17-2022 End: 09-17-2022 ambulatory SHANTEL KNOWLES . Facility: Start: 02-04-2022 End: 02-04-[address] ANDRÉS MENDEZ . Facility: Payers Date Payer Category Payer Unknown [id number] 2.16.84 [id number] 1994 Unknown [id number] 2.16.84 [id number] 1994 Unknown [id number] 2.16.84 [id number] 1994 Unknown [id number] 2.16.840 .[id number] 1994 Unknown [id number] 2.16.840 .[id number] 1994 Unknown [id number] 2.16.840. [id number] 1959 Unknown [id number] Summary Purpose Family History No Family History Records FoundNo Family History Records Found Advance Directives No Advanced Directives Records FoundNo Advanced Directives Records Found Additional Source Comments INFORMATION SOURCE (unrecogn ized section and content) DATE CREATED AUTHOR 09/21/2022 [facility] DATE CREATED AUTHOR AUTHOR'S ORGANIZ ATION 05/20/2023 [facility] dical Specialists EPIC FOR RECORDS PERTAINING TO [...] BE BASED ON THE PRIMARY CLINICAL RECORDS. [facility] [employer] provides no warranty or guarantee of the accuracy or completeness of information in this document.
--- OUTSIDE RECORDS SUMMARY | 2023-05-31 07:44 | XMS_ITS | CCD ---
Author Name Unknown Address [address] [place] [address] Organization [facility] Care Team Providers Care Resource Specialist Name Role Phone ELENI .SHANTEL Admitting Unavailable ELENI ., SHANTEL Attending Unavailable [facility] Primary Care Unava ilable SHANTEL HARDEN Consulting Unavailable RENZO COE Consulting Unavailable VANESSA ., DR BOWEN Admitting Unavailable VANESSA ., DR BOWEN Attending Unavailable [facility], DR JARAMILLO Primary Care Unavailable VANESSA [...] RENZO CAROLIN Date: 2022-09-17 10:11 Normal [facility] GROUP A STREP CULTUREon 09-07 S. pyogenes Ag Ql (Unsp spec) Culture Observations: NEGATIVE FOR GROUP A STREPTOCOCCUS. Normal [facility] Comment on above: Performed By: #### Hai REID GRASTCX #### [facility] [address] [place] [address] Dr. Gordo Cabrera STREPT SCREENon 09-17-2022 STREP SCREEN A Negative Normal NEGATIVE [facility] Comment on above: Performed By: #### Hai REID GRASTCX #### [facility] [address] [place] [address] Dr. Gordo Cabrera PAP ACOG PANEL 2: 21 to 29on 02-14-2022 . . Normal [facility] Comment on above: Performed By: #### 4 [id number] #### [facility] [address] [place] [address] Dr. Gordo Cabrera Age Gdln ACOG Testing - Normal [facility] Comment on above: Performed By: #### 4 [id number] #### [facility] [address] [place] [address] Dr. Gordo Cabrera DIAGNOSIS: Comment Abnormal [facility] Comment on above: Result Comment: EPIT HELIAL CELL ABNORMALITY. ATYPICAL SQUAMOUS CELLS OF UNDETERMINED SIGNIFICANCE (ASC-US). FUNGAL ORGANISMS MORPHOLOGICALLY CONSISTENT WITH MANAV SPECIES ARE PRESENT. Performed By: #### 4 [id number] #### [facility] [address] [place] [address] Dr. Gordo Cabrera Electronically signed by: Comment Normal [facility] Comment on above: Result Comment: Joann Harding MD, Pathologist Performed By: #### 4 [id number] #### [facility] [address] [address] [address] Gordo Cabrera HPV Aptima Negative Normal Negative [facility] Comment on above: Result Comment: This nucleic acid amplification test detects fourteen high-risk HPV types (16,18,31,33,35,39,45,51,52,56,58,59,66,68) without differentiation. Performed By: #### 4 [id number] #### [facility] [address] [address] [address] Gordo Cabrera Methodology: Comment Normal [facility] Comment on above: Result Comment: This liquid based ThinPrep(R) pap test was screened with the use of an image guided system. Performed By: #### 4 [id number] #### [facility] [address] [place] [address] Dr. Gordo Cabrera Note: Comment Normal [facility] Comment on above: Result Comment: The Pap smear is a screening test designed to aid in the detection of premalignant and malignant conditions of the uterine cervix. It is not a diagnostic procedure and should not be used as the sole means of detecting cervical cancer. Both false-positive and false-negative reports do occur. . Performed By: #### 4 [id number] #### [facility] [address] [place] [address] Dr. Gordo Cabrera Pathologist Provided ICD10 Comment Normal [facility] Comment on above: Result Comment: R87. 610, R87.5 Performed By: #### 4 [id number] #### [facility] [address] [place] [address] Dr. Gordo Cabrera Performed by: Comment Normal [facility] Comment on above: Result Comment: Julieta Infante, Jig Bore Operator (ASCP) Performed By: #### 4 [id number] #### [facility] [address] [place] [address] Dr. Gordo Cabrera Recommendation: Comment Abnormal [facility] Comment on above: Result Comment: Sugg est follow up as clinically appropriate. Performed By: #### 4 [id number] #### [facility] [address] [place], [place] [address] Dr. Gordo Cabrera Reflex Criteria: Comment Normal [facility] Comment on above: Result Comment: See below for HPV testing results. . Performed By: #### 4 [id number] #### [facility] [address] [place], [place] [address] Dr. Gordo Cabrera Specimen adequacy: Comment Normal [facility] Comment on above: Result Comment: Sati sfactory for evaluation. Endocervical and/or squamous metaplastic cells (endocervical component) are present. Performed By: #### 4 [id number] #### [facility] [address] [place], [place] [address] Dr. Gordo Cabrera Encounters Encounter Date Encounter [...] Facility: Payers Date Payer Category Payer Unknown [id number] 2.16.84 [id number] 1995 Unknown [id number] 2.16.84 [id number] 1994 Unknown [id number] 2.16.84 [id number] 1994 Unknown [id number] 2.16.840 .[id number] 1994 Unknown [id number] 2.16.840 .[id number] 1994 Unknown [id number] 2.16.840. [id number] 1959 Unknown [id number] Summary Purpose Family History No Family History Records FoundNo Family History Records Found Advance Directives No Advanced Directives Records FoundNo Advanced Directives Records Found Additional Source Comments INFORMATION SOURCE (unrecogn ized section and content) DATE CREATED AUTHOR 09/21/2022 [facility] DATE CREATED AUTHOR AUTHOR'S ORGANIZ ATION 05/20/2023 [facility] dical Specialists EPIC FOR RECORDS PERTAINING [...] BE BASED ON THE PRIMARY CLINICAL RECORDS. [facility] [employer] provides no warranty or guarantee of the accuracy or completeness of information in this document.
[2023-05-31 10:52] VITALS: BP 125/78; PULSE 99
== END 2023-05-31 11:20 | disposition home or self-care (01) ==
LOC: FBCO 07:41 → FBC 10:47
PROVIDERS: Visit Provider Obstetrics & Gynecology
DX: Z34.93 Encounter for supervision of normal pregnancy, unspecified, third trimester (principal)
CPT/HCPCS: 59025; 87081

== ENCOUNTER 2023-05-31 20:40 | Outpatient (REF) | payer OTHER, SELFPAY ==
--- OUTSIDE RECORDS SUMMARY | 2023-05-31 20:43 | XMS_ITS | CCD ---
Author Name Unknown Address [address] [place] [address] Organization [facility] Care Team Providers Care Senior Manager Mmcoe Name Role Phone ELENI .SHANTEL Admitting Unavailable ELENI ., SHANTEL Attending Unavailable [facility], [facility] Primary Care Unava ilable SHANTEL HARDEN Consulting Unavailable RENZO COE Consulting Unavailable VANESSA ., DR BOWEN Admitting Unavailable VANESSA ., DR BOWEN Attending Unavailable [facility] Primary Care Unavailable VANESSA ., [...] RENZO CAROLIN Date: 2022-09-17 10:11 Normal [facility] GROUP A STREP CULTUREon 09-07 S. pyogenes Ag Ql (Unsp spec) Culture Observations: NEGATIVE FOR GROUP A STREPTOCOCCUS. Normal [facility] Comment on above: Performed By: #### Hai REID GRASTCX #### [facility] [address] [place] [address] Dr. Gordo Cabrera STREPT SCREENon 09-17-2022 STREP SCREEN A Negative Normal NEGATIVE [facility] Comment on above: Performed By: #### Hai REID GRASTCX #### [facility] [address] [place] [address] Dr. Gordo Cabrera PAP ACOG PANEL 2: 21 to 29on 02-14-2022 . . Normal [facility] Comment on above: Performed By: #### 4 [id number] #### [facility] [address] [place] [address] Dr. Gordo Cabrera Age Gdln ACOG Testing - Normal [facility] Comment on above: Performed By: #### 4 [id number] #### [facility] [address] [place] [address] Dr. Gordo Cabrera DIAGNOSIS: Comment Abnormal [facility] Comment on above: Result Comment: EPIT HELIAL CELL ABNORMALITY. ATYPICAL SQUAMOUS CELLS OF UNDETERMINED SIGNIFICANCE (ASC-US). FUNGAL ORGANISMS MORPHOLOGICALLY CONSISTENT WITH MANAV SPECIES ARE PRESENT. Performed By: #### 4 [id number] #### [facility] [address] [place] [address] Dr. Gordo Cabrera Electronically signed by: Comment Normal [facility] Comment on above: Result Comment: Joann Harding MD, Pathologist Performed By: #### 4 [id number] #### [facility] [address] [address] [address] Gordo Cabrera HPV Aptima Negative Normal Negative [facility] Comment on above: Result Comment: This nucleic acid amplification test detects fourteen high-risk HPV types (16,18,31,33,35,39,45,51,52,56,58,59,66,68) without differentiation. Performed By: #### 4 [id number] #### [facility] [address] [address] [address] Gordo Cabrera Methodology: Comment Normal [facility] Comment on above: Result Comment: This liquid based ThinPrep(R) pap test was screened with the use of an image guided system. Performed By: #### 4 [id number] #### [facility] [address] [place] [address] Dr. Gordo Cabrera Note: Comment Normal [facility] Comment on above: Result Comment: The Pap smear is a screening test designed to aid in the detection of premalignant and malignant conditions of the uterine cervix. It is not a diagnostic procedure and should not be used as the sole means of detecting cervical cancer. Both false-positive and false-negative reports do occur. . Performed By: #### 4 [id number] #### [facility] [address] [place] [address] Dr. Gordo Cabrera Pathologist Provided ICD10 Comment Normal [facility] Comment on above: Result Comment: R87. 610, R87.5 Performed By: #### 4 [id number] #### [facility] [address] [place] [address] Dr. Gordo Cabrera Performed by: Comment Normal [facility] Comment on above: Result Comment: Julieta Infante, Academic Affairs Director (ASCP) Performed By: #### 4 [id number] #### [facility] [address] [place] [address] Dr. Gordo Cabrera Recommendation: Comment Abnormal [facility] Comment on above: Result Comment: Sugg est follow up as clinically appropriate. Performed By: #### 4 [id number] #### [facility] [address] [place], [place] [address] Dr. Gordo Cabrera Reflex Criteria: Comment Normal [facility] Comment on above: Result Comment: See below for HPV testing results. . Performed By: #### 4 [id number] #### [facility] [address] [place], [place] [address] Dr. Gordo Cabrera Specimen adequacy: Comment Normal [facility] Comment on above: Result Comment: Sati sfactory for evaluation. Endocervical and/or squamous metaplastic cells (endocervical component) are present. Performed By: #### 4 [id number] #### [facility] [address] [place], [place] [address] Dr. Gordo Cabrera Encounters Encounter Date Encounter [...] Facility: Payers Date Payer Category Payer Unknown [id number] 2.16.84 [id number] 1994 Unknown [id number] 2.16.84 [id number] 1994 Unknown [id number] 2.16.84 [id number] 1994 Unknown [id number] 2.16.840 .[id number] 1994 Unknown [id number] 2.16.840 .[id number] 1994 Unknown [id number] 2.16.840. [id number] 1959 Unknown [id number] Summary Purpose Family History No Family History Records FoundNo Family History Records Found Advance Directives No Advanced Directives Records FoundNo Advanced Directives Records Found Additional Source Comments INFORMATION SOURCE (unrecogn ized section and content) DATE CREATED AUTHOR 09/21/2022 [facility] DATE CREATED AUTHOR AUTHOR'S ORGANIZ ATION 05/20/2023 [facility] EPIC FOR RECORDS [...] BE BASED ON THE PRIMARY CLINICAL RECORDS. [facility] [employer] provides no warranty or guarantee of the accuracy or completeness of information in this document.
== END 2023-05-31 20:41 | disposition home or self-care (01) ==
LOC: LAB 20:40
PROVIDERS: Visit Provider Physician Assistant
DX: Z34.93 Encounter for supervision of normal pregnancy, unspecified, third trimester (principal)
CPT/HCPCS: 87081

== ENCOUNTER 2023-06-03 07:17 | Outpatient (OUT) | payer OTHER, SELFPAY ==
--- OUTSIDE RECORDS SUMMARY | 2023-06-03 07:20 | XMS_ITS | CCD ---
Author Name Unknown Address [address] [place] [address] Organization [facility] Care Team Providers Care Mirror Polisher Name Role Phone ELENI .SHANTEL Admitting Unavailable ELENI ., SHANTEL Attending Unavailable [facility], [facility] Primary Care Unava ilable ELENI ., SHANTEL Consulting Unavailable RENZO COE Consulting Unavailable VANESSA ., DR BOWEN Admitting Unavailable VANESSA ., DR BOWEN Attending Unavailable [facility] [place]ARAM[place] Primary Care Unavailable VANESSA ., DR BOWEN Consulting Unavailable LIBBY ALAN Attending Unavailable ANDRÉS MENDEZ Attending Unavailable ANDRÉS MENDEZ Attending Unavailable LIBBY ALAN Attending Unavailable LIBBY ALAN Attending Unavailable Problems [...] by: RENZO COE Date: 2022-09-17 10:11 Normal [facility] GROUP A STREP CULTUREon 09-07 S. pyogenes Ag Ql (Unsp spec) Culture Observations: NEGATIVE FOR GROUP A STREPTOCOCCUS. Normal [facility] Comment on above: Performed By: #### CLEVE NEWTONTCX #### [facility] [address] [place] [address] Dr. Gordo Cabrera STREPT SCREENon 09-17-2022 STREP SCREEN A Negative Normal NEGATIVE [facility] Comment on above: Performed By: #### CLEVE NEWTONTCX #### [facility] [address] [place] [address] Dr. Gordo Cabrera PAP ACOG PANEL 2: 21 to 29on 02-14-2022 . . Normal [facility] Comment on above: Performed By: #### 4 [id number] #### [facility] [address] [place] [address] Dr. Gordo Cabrera Age Gdln ACOG Testing - Normal [facility] Comment on above: Performed By: #### 4 [id number] #### [facility] [address] [place] [address] Dr. Gordo Cabrera DIAGNOSIS: Comment Abnormal [facility] Comment on above: Result Comment: EPIT HELIAL CELL ABNORMALITY. ATYPICAL SQUAMOUS CELLS OF UNDETERMINED SIGNIFICANCE (ASC-US). FUNGAL ORGANISMS MORPHOLOGICALLY CONSISTENT WITH MANAV SPECIES ARE PRESENT. Performed By: #### 4 [id number] #### [facility] [address] [place] [address] Dr. Gordo Cabrera Electronically signed by: Comment Normal [facility] Comment on above: Result Comment: Joann Harding MD, Pathologist Performed By: #### 4 [id number] #### [facility] [address] [place] [address] Dr. Gordo Cabrera HPV Aptima Negative Normal Negative [facility] Comment on above: Result Comment: This nucleic acid amplification test detects fourteen high-risk HPV types (16,18,31,33,35,39,45,51,52,56,58,59,66,68) without differentiation. Performed By: #### 4 [id number] #### [facility] [address] [place] [address] Dr. Gordo Cabrera Methodology: Comment Normal [facility] Comment on above: Result Comment: This liquid based ThinPrep(R) pap test was screened with the use of an image guided system. Performed By: #### 4 [id number] #### [facility] [address] [place] [address] Dr. Gordo Cabrera Note: Comment Normal [facility] Comment on above: Result Comment: The Pap smear is a screening test designed to aid in the detection of premalignant and malignant conditions of the uterine cervix. It is not a diagnostic procedure and should not be used as the sole means of detecting cervical cancer. Both false-positive and false-negative reports do occur. . Performed By: #### 4 [id number] #### [facility] [address] [place] [address] Dr. Gordo Cabrera Pathologist Provided ICD10 Comment Normal [facility] Comment on above: Result Comment: R87. 610, R87.5 Performed By: #### 4 [id number] #### [facility] [address] [place] [address] Dr. Gordo Cabrera Performed by: Comment Normal [facility] Comment on above: Result Comment: Julieta Infante, International Coordinator (ASCP) Performed By: #### 4 [id number] #### [facility] [address] [place] [address] Dr. Gordo Cabrera Recommendation: Comment Abnormal [facility] Comment on above: Result Comment: Sugg est follow up as clinically appropriate. Performed By: #### 4 [id number] #### [facility] [address] [address] [address] Gordo Cabrera Reflex Criteria: Comment Normal [facility] Comment on above: Result Comment: See below for HPV testing results. . Performed By: #### 4 [id number] #### [facility] [address] [address] [address] Gordo Cabrera Specimen adequacy: Comment Normal [facility] Comment on above: Result Comment: Sati sfactory for evaluation. Endocervical and/or squamous metaplastic cells (endocervical component) are present. Performed By: #### 4 [id number] #### [facility] [address] [address] [address] Gordo Cabrera Encounters Encounter Date Encounter Type Care Provider Facility Start: 05-31-2023 End: 05-31-2023 ambulatory LIBBY ALAN Not Available Start: 05-19-2023 End: 05-19-2023 ambulatory ANDRÉS MENDEZ Not Available Start: 05-06-2023 End: 05-06-2023 ambulatory LIBBY ALAN Not Available Start: 04-07-2023 End: 04-07-2023 ambulatory LIBBY ALAN Not Available Start: 03-24-2023 End: 03-24-2023 ambulatory ANDRÉS MENDEZ Not Available Start: 09-17-2022 End: 09-17-2022 ambulatory SHANTEL KNOWLES . Facility: Start: 02-04-2022 End: 02-04-[address] ANDRÉS MENDEZ . Facility:[facility] Payers Date Payer Category Payer Unknown [id number] 2.16.84 [id number] 1994 Unknown [id number] 2.16.84 [id number] 1994 Unknown [id number] 2.16.84 [id number] 1994 Unknown [id number] 2.16.84 0.1.468547.3.579.2.1259 1994 Unknown [id number] 2.16.840 .[id number] 1994 Unknown [id number] 2.16.840 .1.990590.3.579.2.1259 1994 Unknown [id number] 2.16.840. [id number] 1959 Unknown [id number] Summary Purpose Family History No Family History Records FoundNo Family History Records Found Advance Directives No Advanced Directives Records FoundNo Advanced Directives Records Found Additional Source Comments INFORMATION SOURCE (unrecogn ized section and content) DATE CREATED AUTHOR 09/21/2022 [facility] DATE CREATED AUTHOR AUTHOR'S REESE PALENCIA 05/31/2023 [facility] FOR RECORDS PERTAINING TO PATIENTS WHO ARE [...] BE BASED ON THE PRIMARY CLINICAL RECORDS. [facility] [employer] provides no warranty or guarantee of the accuracy or completeness of information in this document.
--- NOTE | 2023-06-03 19:44 | US_ITS ---
[address] [address] Patient Name: DIYA MITCHELL MRN: [id number] date: 1995 Sex: F Assigned Patient Location: US Current Patient Location: Accession/Order Number: [id number] Exam Date: 06/03/2023 19:52 Report Date: 06/04/2023 06:48 At the request of: REENA MERCEDES Procedure: US OB BPP w non-stress EXAMINATION: US OB BPP w non-stress HISTORY: EXCESSIVE GROWTH AFFECTING [id number] COMPARISON: Ultrasound OB biophysical 05/26/2023 TECHNIQUE: Ultrasound biophysical profile was performed in the radiology department. BREATHING MOVEMENTS: 2.0 GROSS BODY MOVEMENTS: 2.0 TONE: 2.0 QUALITATIVE AMNIOTIC FLUID VOLUME: 2.0 PRESENTATION: CEPHALIC HEART RATE: 124.5 bpm bpm. AMNIOTIC FLUID VOLUME: 11.1 cm GESTATIONAL AGE: 36 weeks 4 days CONCLUSION: Total biophysical profile score 8.0. Electronically authenticated by: DAVE MENDOZA Date: 06/04/2023 06:48
== END 2023-06-03 07:18 | disposition home or self-care (01) ==
LOC: US 07:18
PROVIDERS: Visit Provider Obstetrics & Gynecology
DX: O36.63X0 Maternal care for excessive fetal growth, third trimester, not applicable or unspecified (principal); Z3A.36 36 weeks gestation of pregnancy
CPT/HCPCS: 76818

== ENCOUNTER 2023-06-03 18:04 | Outpatient (OUT) | payer OTHER, SELFPAY ==
--- OUTSIDE RECORDS SUMMARY | 2023-06-03 18:06 | XMS_ITS | CCD ---
Author Name Unknown Address [address] [place] [address] Organization [facility] Care Team Providers Care Catheter Builder Name Role Phone ELENI .SHANTEL Admitting Unavailable ELENI ., SHANTEL Attending Unavailable [facility] Primary Care Unava ilable ELENI ., SHANTEL Consulting Unavailable RENZO COE Consulting Unavailable VANESSA ., DR BOWEN Admitting Unavailable VANESSA ., DR BOWEN Attending Unavailable [facility] DR JARAMILLO Primary Care Unavailable VANESSA ., [...] by: RENZO COE Date: 2022-09-17 10:11 Normal [facility] GROUP A STREP CULTUREon 09-07 S. pyogenes Ag Ql (Unsp spec) Culture Observations: NEGATIVE FOR GROUP A STREPTOCOCCUS. Normal [facility] Comment on above: Performed By: #### CLEVE NEWTONTCX #### [facility] [address] [place] [address] Dr. Gordo Cabrera STREPT SCREENon 09-17-2022 STREP SCREEN A Negative Normal NEGATIVE [facility] Comment on above: Performed By: #### CLEVE NEWTONTCX #### [facility] [address] [place] [address] Dr. Gordo Cabrera PAP ACOG PANEL 2: 21 to 29on 02-14-2022 . . Normal [facility] Comment on above: Performed By: #### 4 [id number] #### [facility] [address] [place] [address] Dr. Gordo Cabrera Age Gdln ACOG Testing - Normal [facility] Comment on above: Performed By: #### 4 [id number] #### [facility] [address] [place] [address] Dr. Gordo Cabrera DIAGNOSIS: Comment Abnormal [facility] Comment on above: Result Comment: EPIT HELIAL CELL ABNORMALITY. ATYPICAL SQUAMOUS CELLS OF UNDETERMINED SIGNIFICANCE (ASC-US). FUNGAL ORGANISMS MORPHOLOGICALLY CONSISTENT WITH MANAV SPECIES ARE PRESENT. Performed By: #### 4 [id number] #### [facility] [address] [place] [address] Dr. Gordo Cabrera Electronically signed by: Comment Normal [facility] Comment on above: Result Comment: Joann Harding MD, Pathologist Performed By: #### 4 [id number] #### [facility] [address] [place] [address] Dr. Gordo Cabrera HPV Aptima Negative Normal Negative [facility] Comment on above: Result Comment: This nucleic acid amplification test detects fourteen high-risk HPV types (16,18,31,33,35,39,45,51,52,56,58,59,66,68) without differentiation. Performed By: #### 4 [id number] #### [facility] [address] [place] [address] Dr. Gordo Cabrera Methodology: Comment Normal [facility] Comment on above: Result Comment: This liquid based ThinPrep(R) pap test was screened with the use of an image guided system. Performed By: #### 4 [id number] #### [facility] [address] [place] [address] Dr. Gordo Cabrera Note: Comment Normal [facility] Comment on above: Result Comment: The Pap smear is a screening test designed to aid in the detection of premalignant and malignant conditions of the uterine cervix. It is not a diagnostic procedure and should not be used as the sole means of detecting cervical cancer. Both false-positive and false-negative reports do occur. . Performed By: #### 4 [id number] #### [facility] [address] [place] [address] Dr. Gordo Cabrera Pathologist Provided ICD10 Comment Normal [facility] Comment on above: Result Comment: R87. 610, R87.5 Performed By: #### 4 [id number] #### [facility] [address] [place] [address] Dr. Gordo Cabrera Performed by: Comment Normal [facility] Comment on above: Result Comment: Julieta Infante, Chief Telephone Operator (ASCP) Performed By: #### 4 [id number] #### [facility] [address] [place] [address] Dr. Gordo Cabrera Recommendation: Comment Abnormal [facility] Comment on above: Result Comment: Sugg est follow up as clinically appropriate. Performed By: #### 4 [id number] #### [facility] [address] [address] [address] Gordo Cabrera Reflex Criteria: Comment Normal [facility] Comment on above: Result Comment: See below for HPV testing results. . Performed By: #### 4 [id number] #### [facility] [address] [address] [address] Gordo Cabrera Specimen adequacy: Comment Normal [facility] Comment on above: Result Comment: Sati sfactory for evaluation. Endocervical and/or squamous metaplastic cells (endocervical component) are present. Performed By: #### 4 [id number] #### [facility] [address] [address] [address] Gordo Cabrera Encounters Encounter Date Encounter [...] Facility:[facility] Payers Date Payer Category Payer Unknown [id number] 2.16.84 [id number] 1994 Unknown [id number] 2.16.84 [id number] 1994 Unknown [id number] 2.16.84 [id number] 1994 Unknown [id number] 2.16.84 0.1.478547.3.579.2.1259 1994 Unknown [id number] 2.16.840 .1.799094.3.579.2.1259 1994 Unknown [id number] 2.16.840 .1.324340.3.579.2.1259 1994 Unknown [id number] 2.16.840. [id number] 1959 Unknown [id number] Summary Purpose Family History No Family History Records FoundNo Family History Records Found Advance Directives No Advanced Directives Records FoundNo Advanced Directives Records Found Additional Source Comments INFORMATION SOURCE (unrecogn ized section and content) DATE CREATED AUTHOR 09/21/2022 [facility] DATE CREATED AUTHOR AUTHOR'S REESE PALENCIA 05/31/2023 [facility] Special[facility] FOR RECORDS PERTAINING TO PATIENTS WHO [...] BE BASED ON THE PRIMARY CLINICAL RECORDS. [facility] [employer] provides no warranty or guarantee of the accuracy or completeness of information in this document.
[2023-06-03 19:44] VITALS: TEMP 36.6
[2023-06-03 19:45] VITALS: BP 135/84; PULSE 81
== END 2023-06-03 20:15 | disposition home or self-care (01) ==
LOC: MN 18:04 → FBC 18:48
DX: O24.419 Gestational diabetes mellitus in pregnancy, unspecified control (principal)
CPT/HCPCS: 95250; G0108

== ENCOUNTER 2023-06-05 02:14 | Inpatient (IN) | payer OTHER, SELFPAY ==
[2023-06-05] VITALS (41 sets, daily range): BP systolic 113–167; BP diastolic 56–92; PULSE 63–96; RESP 16; TEMP 36–36.8
--- OUTSIDE RECORDS SUMMARY | 2023-06-05 02:20 | XMS_ITS | CCD ---
Author Name Unknown Address [address] [place] [address] Organization [facility] Care Team Providers Care Dye Weigher Name Role Phone ELENI ., SHANTEL Admitting Unavailable ELENI ., SHANTEL Attending Unavailable [facility] Primary Care Unava iljoanne KNOWLES ., SHANTEL Consulting Unavailable [facility] Consult[facility] Unavailable MARK ., DR BOWEN Admitting Unavailable MARK ., DR BOWEN Attending Unavailable [facility] [place] Primary Care Unavailable MARK ., DR BOWEN Consulting Unavailable Abril [employer] [facility], Naida Primary Care Provide r NAIDA SAMUELS Attending Unavailable NAIDA SAMUELS Referring Unavailable NAIDA SAMUELS Primary Care Unavailable LIBBY ALAN Attending Unavailable ANDRÉS MENDEZ Attending Unavailable ANDRÉS MENDEZ Attending Unavailable LIBBY ALAN Attending Unavailable LIBBY ALAN Attending Unavailable Medications Current Medications Medication Drug Class(es) Dates Sig (Normalized) Sig (Original) cetirizine hydrochloride 10 mg oral tablet (1 source) Histamine-1 Receptor Antagonist Start: 05-19-2023 take 1 tablet by mouth in the morning cetirizine (ZyrTEC) 10 mg tablet Take 1 tablet (10 mg total) by mouth in the morning. 30 tablet 2 05/19/2023 Active ferrous sulfate 325 mg oral tablet (1 source) take 1 tablet by mouth once daily at breakfast ferrous sulfate 325 (65 FE) mg tablet Take 1 tablet (325 mg total) by mouth daily with breakfast. 0 Active fluticasone propionate 0.05 mg/actuat metered dose nasal spray (1 source) Corticosteroid Start: 05-19-2023 take 1 spray(s) nasal route in the morning fluticasone propionate (FLONASE) 50 mcg/actuation nasal spray Administer 1 spray into each nostril in the morning. 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] Onset: 09-21-2022 Chronic Other upper respiratory disease (1 source) Nasal congestion Onset: 05-19-2023 Episodic Otitis media and related conditions (2 sources) Dysfunction of right eustachian tube; Translations: [Unspecified Eustachian tube disorder, right ear] Onset: 05-19-2023 05-19-2023 Episodic Unclassified (1 source) Ear Fullness Onset: 05-19-2023 Past or Other Problems Problem Classification Problem Date Documented Date Episodic/Chronic Cancer of cervix (1 source) Low grade squamous intraepithelial lesion on cervical Papanicolaou smear; Translations: [Low grade squamous intraepithelial lesion on cytologic smear of cervix (LGSIL)] Onset: 04-10-2020 04-10-2020 Episodic Headache; including migraine (1 source) Migraine; Translations: [Migraine, unspecified, not intractable, without status migrainosus] Resolved: 04-10-2020 04-10-2020 Chronic Immunizations and screening for infectious disease (1 source) Encounter for screening for human papillomavirus (HPV); Translations: [ENC SCREENING HUMAN PAPILLOMAVIRUS] Onset: 02-05-2022 Episodic Mood disorders (1 source) Mood disorders Onset: 12-10-2020 12-10-2020 Other complications of (1 source) Varicella non-immune; Translations: [Supervision of other high risk pregnancies, unspecified trimester] Onset: 05-01-2020 05-01-2020 Episodic Other female genital disorders (2 sources) H/O: premature delivery; Translations: [Personal history of pre-term labor] Onset: 11-25-2017 Resolved: 04-10-2020 04-10-2020 Episodic Other hematologic conditions (1 source) History of anemia; Translations: [Personal history of diseases of the blood and blood-forming organs and certain disorders involving the immune mechanism] Onset: 11-25-2017 Resolved: 04-11-2018 04-11-2018 Episodic Other and delivery including normal (1 source) ; Translations: [Encounter for supervision of normal , unspecified, unspecified trimester] Onset: 04-10-2020 04-10-2020 Episodic Other screening for suspected conditions (not mental disorders or infectious disease) (4 sources) Encounter for screening for malignant neoplasm of cervix; Translations: [ENC SCREENING MALIG NEOPLASM CERV] Onset: 02-04-2022 Episodic Substance-related disorders (1 source) Marijuana user; Translations: [Cannabis use, unspecified, uncomplicated] Onset: 11-25-2017 Resolved: 04-10-2020 04-10-2020 Episodic Unclassified (1 source) Onset: 07-15-2022 07-15-2022 Results Test Name Value Interpretation Reference Range Facil ity CT NECK ST W CONon [address] W CON EXAMINATION: CT [...] by: RENZO COE Date: 2022-09-17 10:11 Normal [facility] GROUP A STREP CULTUREon 09-07 S. pyogenes Ag Ql (Unsp spec) Culture Observations: NEGATIVE FOR GROUP A STREPTOCOCCUS. Normal [facility] Comment on above: Performed By: #### S SCRN, GRASTCX #### [facility] [address] [place] [address] Dr. Gordo Cabrera STREPT SCREENon 09-17-2022 STREP SCREEN A Negative Normal NEGATIVE [facility] Comment on above: Performed By: #### S SCRN, GRASTCX #### [facility] [address] [place] [address] Dr. Gordo Cabrera PAP ACOG PANEL 2: 21 to 29on 02-14-2022 . . Normal [facility] Comment on above: Performed By: #### [id number] #### [facility] [address] [place] [address] Dr. Gordo Cabrera Age Gdln ACOG Testing - Normal [facility] Comment on above: Performed By: #### [id number] #### [facility] [address] [place] [address] Dr. Gordo Cabrera DIAGNOSIS: Comment Abnormal [facility] Comment on above: Result Comment: EPIT HELIAL CELL ABNORMALITY. ATYPICAL SQUAMOUS CELLS OF UNDETERMINED SIGNIFICANCE (ASC-US). FUNGAL ORGANISMS MORPHOLOGICALLY CONSISTENT WITH MANAV SPECIES ARE PRESENT. Performed By: #### [id number] #### [facility] [address] [place] [address] Dr. Gordo Cabrera Electronically signed by: Comment Normal [facility] Comment on above: Result Comment: Joann Harding MD, Pathologist Performed By: #### [id number] #### [facility] [address] [place] [address] Dr. Gordo Cabrera HPV Aptima Negative Normal Negative [facility] Comment on above: Result Comment: This nucleic acid amplification test detects fourteen high-risk HPV types (16,18,31,33,35,39,45,51,52,56,58,59,66,68) without differentiation. Performed By: #### [id number] #### [facility] [address] [place] [address] Dr. Gordo Cabrera Methodology: Comment Normal [facility] Comment on above: Result Comment: This liquid based ThinPrep(R) pap test was screened with the use of an image guided system. Performed By: #### [id number] #### [facility] [address] [place] [address] Dr. Gordo Cabrera Note: Comment Normal [facility] Comment on above: Result Comment: The Pap smear is a screening test designed to aid in the detection of premalignant and malignant conditions of the uterine cervix. It is not a diagnostic procedure and should not be used as the sole means of detecting cervical cancer. Both false-positive and false-negative reports do occur. . Performed By: #### [id number] #### [facility] [address] [address] [address] Gordo Cabrera Pathologist Provided ICD10 Comment Normal [facility] Comment on above: Result Comment: R87. 610, R87.5 Performed By: #### [id number] #### [facility] [address] [address] [address] Gordo Cabrera Performed by: Comment Normal [facility] Comment on above: Result Comment: Julieta Infante, Environmental Specialist (ASCP) Performed By: #### 4 [id number] #### [facility] [address] [place] [address] Dr. Gordo Cabrera Recommendation: Comment Abnormal [facility] Comment on above: Result Comment: Sugg est follow up as clinically appropriate. Performed By: #### [id number] #### [facility] [address] [address] [address] Gordo Cabrera Reflex Criteria: Comment Normal [facility] Comment on above: Result Comment: See below for HPV testing results. . Performed By: #### [id number] #### [facility] [address] [place] [address] Dr. Gordo Cabrera Specimen adequacy: Comment Normal [facility] Comment on above: Result Comment: Sati sfactory for evaluation. Endocervical and/or squamous metaplastic cells (endocervical component) are present. Performed By: #### [id number] #### [facility] [address] [place] [address] Dr. Gordo Cabrera Vital Signs Date Time Vital Sign Value Performing Clinician Faci lity 05-19-2023 13:06-0500 Body mass index (BMI) [Ratio] 33.3 kg/m2 Naida GARCIA Work Phone: [facility] 05-19-2023 13:06-0500 Body weight 85.28 kg Naida Samuels VALVE ASSEMBLER-COMMUNITY MARKETING MANAGER Work Phone: [facility] 05-19-2023 13:06-0500 Diastolic blood pressure 72 mm[Hg] [facility] [employer]VE ASSEMBLER-COMMUNITY MARKETING MANAGER Work Phone: [facility] 05-19-2023 13:06-0500 Heart rate 88 /min [facility] [employer]VE ASSEMBLER-COMMUNITY MARKETING MANAGER Work Phone: [facility] 05-19-2023 13:06-0500 Respiratory rate 16 /min Naida Samuels VALVE ASSEMBLER-COMMUNITY MARKETING MANAGER Work Phone: [facility] 05-19-2023 13:06-0500 Systolic blood pressure 120 mm[Hg] [facility] VALVE ASSEMBLER-COMMUNITY MARKETING MANAGER Work Phone: [facility] Encounters Encounter Date Encounter Type Care Provider Facility Start: 05-31-2023 End: 05-31-2023 ambulatory LIBBY ALAN Not Available Start: 05-19-2023 End: 05-19-2023 ambulatory [facility] Start: 05-19-2023 End: 05-19-2023 ambulatory ANDRÉS MENDEZ Not Available Start: 05-19-2023 End: 05-19-2023 Office outpatient visit 15 minutes [facility] VALVE ASSEMBLER-COMMUNITY MARKETING MANAGER Work Phone: [facility] Comment on above: Eustachian tube dysf unction, right (Primary Dx) Start: 05-06-2023 End: 05-06-2023 ambulatory LIBBY ALAN Not Available Start: 04-07-2023 End: 04-07-2023 ambulatory LIBBY ALAN Not Available Start: 03-24-2023 End: 03-24-2023 ambulatory ANDRÉS MENDEZ Not Available Start: 09-17-2022 End: 09-17-2022 ambulatory SHANTEL KNOWLES . Facility: Start: 02-04-2022 End: 02-04-[address] ANDRÉS MENDEZ . Facility:[facility]1 Procedures Date Procedure Procedure Detail Performing Clinician Start: 12-10-2020 Adult depression scr eening assessment Naida Samuels APRNNangateCOMMUNITY MARKETING MANAGER Work Phone: Start: 04-10-2020 Microscopic observat ion [Identifier] in Cervix by Cyto stain Naida GARCIA Work Phone: Plan of Treatment Date Care Activity Detail Author Start: 08-15-2029 DTaP,Tdap and Td Vaccines (10 - Td or Tdap) DTaP,Tdap and Td Vaccines (10 - Td or Tdap) [facility] Start: 09-01-2023 Adult BMI Screening Adult BMI Screen ing [facility] Start: 09-01-2023 Tobacco Screening Tobacco Screening [facility] Start: 07-16-2023 Adult BMI Follow Up Plan Adult BMI Follow Up Plan [facility] Start: 04-10-2023 Screening for malign ant neoplasm of cervix Pap Smear [facility] Start: 01-08-2023 Influenza vaccination Influenza Vacc ine [facility] Start: 12-10-2021 Depression Screening Depression Scre ening [facility] Immunizations Immunization Date Immunization Notes Care Provider Fa josh 01-14-2021 influenza virus vaccine, unspecified formulation Naida Samuels APRNNangateCOMMUNITY MARKETING MANAGER Work Phone: [facility] 08-16-2019 tetanus toxoid, reduced diphtheria toxoid, and acellular pertussis vaccine, adsorbed Naida Samuels VALVE ASSEMBLER-COMMUNITY MARKETING MANAGER Work Phone: [facility] 12-04-2016 tetanus toxoid, reduced diphtheria toxoid, and acellular pertussis vaccine, adsorbed Naida Samuels VALVE ASSEMBLER-COMMUNITY MARKETING MANAGER Work Phone: [facility] 07-07-2014 tetanus toxoid, reduced diphtheria toxoid, and acellular pertussis vaccine, adsorbed Naida Samuels VALVE ASSEMBLER-COMMUNITY MARKETING MANAGER Work Phone: [facility] 03-03-2010 human papilloma viru s vaccine, quadrivalent Naida Samuels APRN-COMMUNITY MARKETING MANAGER Work Phone: [facility] 03-03-2010 tetanus toxoid, reduced diphtheria toxoid, and acellular pertussis vaccine, adsorbed Naida Schlachter VALVE ASSEMBLER-COMMUNITY MARKETING MANAGER Work Phone: [facility] 10-14-1999 diphtheria, tetanus toxoids and acellular pertussis vaccine Naida Schlachter VALVE ASSEMBLER-COMMUNITY MARKETING MANAGER Work Phone: [facility] 10-14-1999 measles, mumps and rubella virus vaccine Naida Schlachter VALVE ASSEMBLER-COMMUNITY MARKETING MANAGER Work Phone: [facility] 10-14-1999 trivalent poliovirus vaccine, live, oral Naida Schlachter VALVE ASSEMBLER-COMMUNITY MARKETING MANAGER Work Phone: [facility] 10-14-1999 varicella virus vaccine Naida Schlachter VALVE ASSEMBLER-COMMUNITY MARKETING MANAGER Work Phone: [facility] 08-07-1997 diphtheria, tetanus toxoids and acellular pertussis vaccine Naida Schlachter VALVE ASSEMBLER-COMMUNITY MARKETING MANAGER Work Phone: [facility] 09-29-1996 diphtheria, tetanus toxoids and acellular pertussis vaccine Naida Schlachter VALVE ASSEMBLER-COMMUNITY MARKETING MANAGER Work Phone: [facility] 09-29-1996 hepatitis B vaccine, adult dosage Naida Schlachter VALVE ASSEMBLER-COMMUNITY MARKETING MANAGER Work Phone: [facility] 09-29-1996 trivalent poliovirus vaccine, live, oral Naida Schlachter VALVE ASSEMBLER-COMMUNITY MARKETING MANAGER Work Phone: [facility] 06-12-1996 diphtheria, tetanus toxoids and acellular pertussis vaccine Naida Schlachter VALVE ASSEMBLER-COMMUNITY MARKETING MANAGER Work Phone: [facility] 06-12-1996 hepatitis B vaccine, adult dosage Naida Schlachter VALVE ASSEMBLER-COMMUNITY MARKETING MANAGER Work Phone: [facility] 06-12-1996 measles, mumps and rubella virus vaccine Naida Schlachter VALVE ASSEMBLER-COMMUNITY MARKETING MANAGER Work Phone: [facility] 06-12-1996 trivalent poliovirus vaccine, live, oral Naida Schlachter VALVE ASSEMBLER-COMMUNITY MARKETING MANAGER Work Phone: [facility] [employer] [facility] 1994 diphtheria, tetanus toxoids and acellular pertussis vaccine Naida Samuels VALVE ASSEMBLER-COMMUNITY MARKETING MANAGER Work Phone: [facility] 1994 hepatitis B vaccine, adult dosage Naida Samuels VALVE ASSEMBLER-COMMUNITY MARKETING MANAGER Work Phone: [facility] [employer] 1994 trivalent poliovirus vaccine, live, oral Naida Samuels VALVE ASSEMBLER-COMMUNITY MARKETING MANAGER Work Phone: [facility] [employer] NEGATED: Highlighted row has not occurred!06-24-2018 tetanus toxoid, reduced diphtheria toxoid, and acellular pertussis vaccine, adsorbed Naida Samuels VALVE ASSEMBLER-COMMUNITY MARKETING MANAGER Work Phone: [facility] Payers Date Payer Category Payer Medicaid [employer] [id number] 2003-Present [phone] [place] [id number] 1994 Unknown [id number] 1994 Unknown [id number] 1994 Unknown [id number] 1994 Unknown [id number] 1994 Unknown [id number] 1994 Unknown [id number] 1994 Unknown [id number] 1994 Unknown [id number] 1959 Unknown [id number] Social History Date Type Detail Facility Start: [facility]-31-2022 [facility] Start: 08-31-2022 Tobacco use and exposure Smokeless tobacco non-user [facility] Start: 05-19-2023 Alcohol intake Current drinke r of alcohol (finding) [facility] Start: 05-21-2020 End: 05-19-2023 History of Social function [facility] Start: 05-21-2020 End: 05-19-2023 Tobacco use panel [facility] How hard is it for y ou to pay for the very basics like food, housing, medical care, and heating Not very hard [facility] Adolescent depressio n screening assessment 0 [facility] Do you feel stress - tense, restless, nervous, or anxious, or unable to sleep at night because your mind is troubled all the time - these days [OSQ] Not at all [facility] Start: 08-31-2022 Alcohol Comment heavily [facility] Start: 1995 Sex Assigned At Not on file P [facility] History of Present illness Narrative 05-19-2023 Naida Samuels APRN-COMMUNITY MARKETING MANAGER - 05/19/2023 1:00 PM EST Note Date & Type Note Facility 05-19-2023 History of Presen t illness Narrative Images from the original note were not included. [id number] [facility] [id number] SUBJECTIVE: Patient ID: Diya Joseph is a 27 y.o. female. Ear Fullness There is pain in the right ear. The current episode started in the past 7 days. The problem occurs constantly. The problem has been unchanged. There has been no fever. The pain is at a severity of 0/10. The patient is experiencing no pain. Associated symptoms include hearing loss. Pertinent negatives include no ear discharge or headaches. Nasal Congestion Associated symptoms include congestion and sinus pressure. Pertinent negatives include no chills, ear pain, headaches or shortness of breath. -Patient is a 27 year old female presenting with ear fullness and muffled sounds on the right side. Patient states symptoms started 1 week ago and have been persisting. Patient does not relate to pain, but does relate to muffled sounds and popping. Patient states they have tried ear drops, tylenol, and sudafed. Patient states that their OBGYN Mark prescribed amoxicillin for 10 days on 05/14/23. Patient states ear drops made it worse but nothing aggravates the condition. No other concerns noted at this time. The following portions of the patient's history were reviewed and updated as appropriate: allergies, current medications, past family history, past medical history, past social history, past surgical history and problem list. REVIEW OF SYSTEMS: Review of Systems Constitutional: Negative. Negative for chills, fatigue and fever. HENT: Positive for congestion, hearing loss and sinus pressure. Negative for ear discharge and ear pain. Eyes: Negative. Respiratory: Negative. Negative for chest tightness and shortness of breath. Cardiovascular: Negative. Negative for chest pain and palpitations. Gastrointestinal: Negative. Endocrine: Negative. Genitourinary: Negative. Musculoskeletal: Negative. Allergic/Immunologic: Negative. Neurological: Positive for dizziness and light-headedness. Negative for headaches. Hematological: Negative. Psychiatric/Behavioral: Negative. PHYSICAL EXAMINATION: Vitals: 05/19/23 1306 BP: 120/72 Pulse: 88 Resp: 16 Weight: 85.3 kg (188 lb) Physical Exam Constitutional: Appearance: Normal appearance. HENT: Head: Normocephalic. Right Ear: Tympanic membrane, ear canal and external ear normal. Left Ear: Ear canal and external ear normal. A middle ear effusion is present. Ears: Comments: Fluid behind ear drum Nose: Nose normal. Mouth/Throat: Mouth: Mucous membranes are moist. Pharynx: Oropharynx is clear. Eyes: Pupils: Pupils are equal, round, and reactive to light. Cardiovascular: Rate and Rhythm: Normal rate and regular rhythm. Pulses: Normal pulses. Heart sounds: Normal heart sounds. Pulmonary: Effort: Pulmonary effort is normal. Breath sounds: Normal breath sounds. Abdominal: General: Abdomen is flat. Bowel sounds are normal. Palpations: Abdomen is soft. Musculoskeletal: General: Normal range of motion. Cervical back: Normal range of motion and neck supple. Skin: General: Skin is warm and dry. Capillary Refill: Capillary refill takes less than 2 seconds. Neurological: General: No focal deficit present. Mental Status: She is alert. Psychiatric: Mood and Affect: Mood normal. Behavior: Behavior normal. ASSESSMENT/PLAN: 1.) Take zyrtec 10mg PO once daily 2.)1 spray per nares aimed toward the ear daily 3.) Discussed stopping sudafed for safety of Diya was seen today for ear fullness and nasal congestion. Diagnoses and all orders for this visit: Eustachian tube dysfunction, right Follow-up: In 2 weeks needed RADHA Townsend 05/19/23 1342 documented in this encounter [facility] Evaluation note Note Date & Type Note Facility Evaluation note Diagnosis Eustachian tube dysfunction, right- Primary [facility] Instructions Attachments Note Date & Type Note Facility Instructions The following attachments cannot be sent through Care Everywhere.Eustachian tube problems (Irish)documented in this encounter [facility] Summary Purpose Family History No Family History Records FoundNo Family History Records FoundNo Family History Records Found Advance Directives No Advanced Directives Records FoundLatest Code Status on File Code Status Date Activated Date Inactivated Comments Full Code 06/22/2018 11:15 AM 06/24/2018 6:57 PM Code Status History Code Status Date Activated Date Inactivated Comments Full Code 06/22/2018 9:19 AM 06/22/2018 11:15 AM Full Code 06/21/2018 12:26 PM 06/21/2018 2:36 PM Full Code 06/18/2018 7:14 AM 06/18/2018 6:46 PM Full Code 04/05/2018 5:53 PM 04/05/2018 8:25 PM Additional Source Comments INFORMATION SOURCE (unrecogn ized section and content) DATE CREATED AUTHOR 09/21/2022 [facility] DATE CREATED AUTHOR AUTHOR'S ORGANIZ ATION 05/23/2023 [facility] DATE CREATED AUTHOR AUTHOR'S ORGANIZ ATION 05/31/2023 [facility] EPIC Reason for Visit (unrecogniz ed section and content) Reason Comments Ear Fullness Nasal Congestion Care Teams (unrecognized sec tion and content) Dye Weigher Relationship Specialty Start Date End Date Naida Samuels APRN-POWER [address] [id number] PCP - General Family Medicine 01/18/20 FOR RECORDS PERTAINING TO PATIENTS WHO ARE [...] BE BASED ON THE PRIMARY CLINICAL RECORDS. [employer] [facility]. provides no warranty or guarantee of the accuracy or completeness of information in this document.
[2023-06-05 02:40] LABS: Bilirubin Urine NEGATIVE (NEGATIVE); Blood Urine TRACE-I (NEGATIVE); Clarity Urine CLEAR (CLEAR); Color Urine LT. YELLOW (YELLOW); Glucose Urine UA NEGATIVE (NEGATIVE); Ketones Urine NEGATIVE (NEGATIVE); Leukocyte Esterase Urine TRACE (NEGATIVE); Nitrite Urine NEGATIVE (NEGATIVE); Protein Urine NEGATIVE (NEG/TRACE); Urobilinogen Urine 0.2 EU/dL (0.2-1.0); pH Urine 6.5 (5.0-9.0)
[2023-06-05 02:42] LABS: Urine Microscopic Indicated YES
[2023-06-05 02:48] LABS: Bacteria Urine SMALL #/HPF (NONE SEEN); RBC Urine 0-2 #/HPF (0-2)
[2023-06-05 02:49] LABS: Cast Seen? NONE SEEN #/LPF (NONE SEEN); Crystals Seen? None Seen #/HPF (None Seen); Mucus Urine NONE SEEN (NONE SEEN); Squamous Epithelial Cell Urine MODERATE #/LPF (NONE/RARE); Urine Culture Indicated YES
[2023-06-05 05:16] LABS: Hematocrit 29.2 % (36.0-48.0); Hemoglobin 9.2 g/dL (12.0-16.0); Mean Corpuscular HGB Conc 31.5 g/dL (29.9-35.2); Mean Corpuscular Hemoglobin 23.8 pg (26.7-34.0); Mean Corpuscular Volume 75.6 fL (81.0-99.0); Mean Platelet Volume 11.8 fL (9.5-13.5); Platelet Count 184 10^3/uL (150-450); Red Blood Count 3.86 10^6/uL (4.20-5.40); Red Cell Distribution Width 13.9 % (11.0-15.0); White Blood Count 9.3 10^3/uL (4.0-11.0)
[2023-06-05 05:31] LABS: Amphetamine Screen Urine NEGATIVE (NEGATIVE); Barbiturates Screen Urine NEGATIVE (NEGATIVE); Benzodiazepines Screen Urine NEGATIVE (NEGATIVE); Buprenorphine Screen Urine NEGATIVE (NEGATIVE); Cannabinoid Screen Urine NEGATIVE (NEGATIVE); Cocaine Screen Urine NEGATIVE (NEGATIVE); Methadone Screen Urine NEGATIVE (NEGATIVE); Methamphetamines Screen Urine NEGATIVE (NEGATIVE); Opiate Screen Urine NEGATIVE (NEGATIVE); Oxycodone Screen Urine NEGATIVE (NEGATIVE); Phencyclidine Screen Urine NEGATIVE (NEGATIVE); Tricyclic Antidepressant Urine NEGATIVE (NEGATIVE)
--- NOTE | 2023-06-05 05:40 | PC.NURSE ---
0500: Pt transferred to room 256 d/t cervical change noted. Pt to be admitted.
[2023-06-05] MEDS: 0.9 % SODIUM CHLORIDE 1,000 ML 125 ML IV (05:53)
--- NOTE | 2023-06-05 06:25 | PC.NURSE ---
Pt reports having a history of SI in the past- at least 5 years ago. 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 Pt says she did try a prescribed antidepressant after her second child but discontinue use b/c she did not like how it made her feel. BENEDICTO, RN
--- NOTE | 2023-06-05 07:35 | P.OBHP_ITS ---
OB - H&P: HPI History of Present Illness Chief complaint: R/O LABOR : 5 Para: 4 Date of last menstrual period: 09/20/2022 Gestational age based on last menstrual period: 36wk 6days History of Present Dating criteria: LMP confirmed by 1st trimester US care: good care Ultrasounds: normal 1st trimester US and normal mid trimester US complications: gestational diabetes Medical complications OB: none Labs Blood type: O (+) positive Rubella: immune RPR/VDLR: nonreactive GBS status: negative HBsAG: negative Review of Systems ROS Status of ROS: 10 or more systems reviewed and unremarkable except as noted in history and below Meds Home Medications and Allergies Allergies Allergy/AdvReac Type Severity Reaction Status Date / Time No Known Drug Allergies Allergy Verified 06/05/23 04:57 Exam Constitutional Vital Signs, click to edit/add: Last Vital Signs Temp 98.2 F 06/05/23 07:30 Pulse 76 06/05/23 07:23 BP 145/89 H 06/05/23 07:23 Documenting provider has reviewed patient's vital signs: yes Common normals: no apparent distress, oriented x3, healthy appearing, alert and well nourished General appearance: cooperative and well developed Orientation/consciousness: Yes awake, Yes oriented to person, Yes oriented to place and Yes oriented to time HENMT Common normals: normocephalic Head and scalp: normocephalic Eye Common normals: PERRL Neck & C-Spine Common normals: full ROM Lymph Lymphatic: no lymphadenopathy noted Chest Common normals: inspection of chest normal Respiratory Common normals: normal respiratory effort Cardio Common normals: regular rate GI Common normals: Normal to inspection, nondistended, normoactive bowel sounds present Other: gravid Common normals: no CVA tenderness and external appearance normal Other: observation 3cm changed to 4+ cm/60percent, -2 station Back & Pelvis Common normals: no CVA tenderness Extremity Common normals: normal to inspection Neuro Common normals: oriented x3 Psych Common normals: mental status grossly normal Results Labs Labs: Short CBC 06/05/23 Range/Units 05:00 WBC 9.3 (4.0-11.0) 10^3/uL Hgb 9.2 L (12.0-16.0) g/dL Hct 29.2 L (36.0-48.0) % Plt Count 184 (150-450) 10^3/uL Urine 06/05/23 Range/Units 02:20 Urine Color Lt. yellow (YELLOW) Urine Clarity Clear (CLEAR) Urine pH 6.5 (5.0-9.0) Ur Specific [place] 1.010 (1.005-1.025) Urine Protein Negative (NEG/TRACE) mg/dL Urine Glucose (UA) Negative (NEGATIVE) mg/dL OB - A/P Assessment and Plan (1) labor in third trimester: Plan 36wk 6day IUP late diagnosis GDM - diet controlled presents in labor - spontaneous Admission, OK for epidural Labor discussed with patient Delivery expectations all questions answered Additional Plan Induction method: none Plan: expectant management
--- NOTE | 2023-06-05 07:44 | P.OBHP_ITS ---
OB - H&P: HPI History of Present Illness Chief complaint: R/O LABOR Date of last menstrual period: 09/20/2022 History of Present complications: gestational diabetes Meds Home Medications and Allergies Allergies Allergy/AdvReac Type Severity Reaction Status Date / Time No Known Drug Allergies Allergy Verified 06/05/23 04:57 Exam Constitutional Vital Signs, click to edit/add: Last Vital Signs Temp 98.2 F 06/05/23 07:30 Pulse 76 06/05/23 07:23 BP 145/89 H 06/05/23 07:23 Results Labs Labs: Short CBC 06/05/23 Range/Units 05:00 WBC 9.3 (4.0-11.0) 10^3/uL Hgb 9.2 L (12.0-16.0) g/dL Hct 29.2 L (36.0-48.0) % Plt Count 184 (150-450) 10^3/uL Urine 06/05/23 Range/Units 02:20 Urine Color Lt. yellow (YELLOW) Urine Clarity Clear (CLEAR) Urine pH 6.5 (5.0-9.0) Ur Specific [place] 1.010 (1.005-1.025) Urine Protein Negative (NEG/TRACE) mg/dL Urine Glucose (UA) Negative (NEGATIVE) mg/dL OB - A/P Assessment and Plan (1) labor in third trimester: Qualifiers: labor delivery status: with delivery in third trimester Fetus number: single or unspecified fetus Qualified Code(s): O60.14X0 - labor third trimester with delivery third trimester, not applicable or unspecified (2) Anemia affecting fifth : Assessment and Plan: continue iron (3) Gestational diabetes mellitus (GDM) affecting fifth : Assessment and Plan: diet controlled
[2023-06-05] MEDS: 0.9 % SODIUM CHLORIDE 1,000 ML 1000 ML IV (07:47)
[2023-06-05] MEDS: ROPIVACAINE HCL/PF 400 MG/200 ML PREMIX 6 MG EPIDURAL (08:07)
--- NOTE | 2023-06-05 08:38 | PM.OBPN ---
OB - PN: Subj Subjective Patient comments: no complaints Narrative: received epidural and comfortable Exam Constitutional Vital Signs, click to edit/add: Last Vital Signs Temp 98.2 F 06/05/23 07:30 Pulse 71 06/05/23 08:37 BP 119/62 06/05/23 08:37 Other: NST reactive, category with accels cervix - 4+/80, -1 station AROM -clear fluid, no complications Results Labs Labs: Short CBC 06/05/23 Range/Units 05:00 WBC 9.3 (4.0-11.0) 10^3/uL Hgb 9.2 L (12.0-16.0) g/dL Hct 29.2 L (36.0-48.0) % Plt Count 184 (150-450) 10^3/uL Urine 06/05/23 Range/Units 02:20 Urine Color Lt. yellow (YELLOW) Urine Clarity Clear (CLEAR) Urine pH 6.5 (5.0-9.0) Ur Specific [place] 1.010 (1.005-1.025) Urine Protein Negative (NEG/TRACE) mg/dL Urine Glucose (UA) Negative (NEGATIVE) mg/dL OB - PN: A/P Assessment and Plan (1) labor in third trimester: Assessment and Plan: Comfortable with epidural AROM without complications Expectant management Qualifiers: labor delivery status: with delivery in third trimester Fetus number: single or unspecified fetus Qualified Code(s): O60.14X0 - labor third trimester with delivery third trimester, not applicable or unspecified (2) Anemia affecting fifth : Assessment and Plan: observe (3) Gestational diabetes mellitus (GDM) affecting fifth : Assessment and Plan: diet controlled Time Spent with Patient Time: Total time spent is greater than 50% in coordination of care (as documented) at patient's floor/unit and/or counseling patient: Total time spent with greater than 50% in coordination of care (as documented) at patient's floor/unit and/or counseling patient: less than 15 minutes
--- NOTE | 2023-06-05 11:38 | P.OBPN_ITS ---
OB - PN: Subj Subjective Patient comments: pain well controlled Exam Constitutional Vital Signs, click to edit/add: Last Vital Signs Temp 98 F 06/05/23 09:54 Pulse 71 06/05/23 11:24 BP 134/75 06/05/23 11:24 Other: cervix - . -1 station NST - reactive, cat 1 with accels Results Labs Labs: Short CBC 06/05/23 Range/Units 05:00 WBC 9.3 (4.0-11.0) 10^3/uL Hgb 9.2 L (12.0-16.0) g/dL Hct 29.2 L (36.0-48.0) % Plt Count 184 (150-450) 10^3/uL Urine 06/05/23 Range/Units 02:20 Urine Color Lt. yellow (YELLOW) Urine Clarity Clear (CLEAR) Urine pH 6.5 (5.0-9.0) Ur Specific [place] 1.010 (1.005-1.025) Urine Protein Negative (NEG/TRACE) mg/dL Urine Glucose (UA) Negative (NEGATIVE) mg/dL OB - PN: A/P Assessment and Plan (1) labor in third trimester: Assessment and Plan: expectant management Qualifiers: labor delivery status: with delivery in third trimester Fetus number: single or unspecified fetus Qualified Code(s): O60.14X0 - labor third trimester with delivery third trimester, not applicable or unspecified (2) Anemia affecting fifth : (3) Gestational diabetes mellitus (GDM) affecting fifth : Time Spent with Patient Time: Total time spent is greater than 50% in coordination of care (as documented) at patient's floor/unit and/or counseling patient: Total time spent with greater than 50% in coordination of care (as documented) at patient's floor/unit and/or counseling patient: less than 15 minutes
--- NOTE | 2023-06-05 12:25 | PM.OBPRCVD ---
Procedure Procedure: viable male over intact perineum JOSE ALFREDO Spontaneous cry at delivery Placenta assisted spon delivery, intact, complete 3VC Straight cath urine no complications EBL - 150 events: Labor < 37 Weeks Intrapartal events: None Induction method: none Delivery augmentation: rupture of membranes Delivery monitor: external FHT and external uterine Route of delivery: Episiotomy Description: none Laceration description: none Anesthesia type: Epidural Disposition: no change Complications: none Delivery date: 06/05/23 Gender: male presentation: vertex Placental delivery description: Spontaneous and Expressed cord description: 3 Vessels heart rate - 1 minute: 100 bpm or Greater respiratory effort - 1 minute: Spontaneous/Strong Cry muscle tone - 1 minute: Active Movement reflex response - 1 minute: Prompt Response color - 1 minute: Bluish Hands or Feet total score - 1 minute: 9 heart rate - 5 minute: 100 bpm or Greater respiratory effort - 5 minute: Spontaneous/Strong Cry muscle tone - 5 minute: Active Movement reflex response - 5 minute: Prompt Response color - 5 minute: Bluish Hands or Feet total score - 5 minute: 9
[2023-06-05] MEDS: IBUPROFEN 600 MG TABLET PO (17:32)
[2023-06-05] MEDS: ACETAMINOPHEN 325 MG TABLET 650 MG PO (20:11)
[2023-06-06] VITALS (7 sets, daily range): BP systolic 110–135; BP diastolic 69–83; PULSE 69–75; RESP 16; TEMP 35.9–36.6
[2023-06-06] MEDS: IBUPROFEN 600 MG TABLET PO ×3 (00:25→19:01)
--- NOTE | 2023-06-06 08:08 | PM.OBPN ---
OB - PN: Subj Subjective Patient comments: no complaints [place] status: doing well Exam Constitutional Vital Signs, click to edit/add: Last Vital Signs Temp 96.6 F L 06/06/23 00:27 Pulse 69 06/06/23 00:22 Resp 16 06/06/23 00:30 BP 131/69 06/06/23 00:22 O2 Del Method Room Air 06/06/23 00:30 GI Common normals: soft to palpation and non-tender Other: Fundus firm below umbilicus OB - PN: A/P Assessment and Plan (1) labor in third trimester: Assessment and Plan: day #1 continue current care Qualifiers: labor delivery status: with delivery in third trimester Fetus number: single or unspecified fetus Qualified Code(s): O60.14X0 - labor third trimester with delivery third trimester, not applicable or unspecified (2) Anemia affecting fifth : (3) Gestational diabetes mellitus (GDM) affecting fifth : Plan - Vaginal Delivery day: 1 Plan: routine care Time Spent with Patient Time: Total time spent is greater than 50% in coordination of care (as documented) at patient's floor/unit and/or counseling patient: Total time spent with greater than 50% in coordination of care (as documented) at patient's floor/unit and/or counseling patient: less than 15 minutes
[2023-06-06] MEDS: DOCUSATE SODIUM 100 MG CAPSULE PO ×2 (09:36→21:17)
[2023-06-06] MEDS: ACETAMINOPHEN 325 MG TABLET 650 MG PO ×2 (12:25→21:17)
[2023-06-07 01:26] VITALS: BP 131/75; PULSE 75; RESP 14; TEMP 36.1
[2023-06-07] MEDS: IBUPROFEN 600 MG TABLET PO (06:24)
[2023-06-07 07:56] VITALS: BP 131/67; PULSE 80
[2023-06-07 08:00] VITALS: RESP 16; TEMP 36.9
--- NOTE | 2023-06-07 11:23 | PM.PRCCIRC ---
Circumcision Circumcision Pre-procedure diagnosis: Normal boy Post-procedure diagnosis: Normal infant boy Informed consent: mother Anesthesia used: 1% lidocaine injected Type of block: dorsal penile block Device used: [employer] (1.3) Estimated blood loss: minimal Specimen: No Additional comments: Time out performed. Correct patient and position identified. Patient tolerated the procedure well.
--- NOTE | 2023-06-07 12:47 | PM.OBPN ---
OB - PN: Subj Subjective Patient comments: no complaints and pain well controlled Exam Constitutional Vital Signs, click to edit/add: Last Vital Signs Temp 98.4 F 06/07/23 08:00 Pulse 80 06/07/23 07:56 Resp 16 06/07/23 08:00 BP 131/67 06/07/23 07:56 O2 Del Method Room Air 06/06/23 00:30 Documenting provider has reviewed patient's vital signs: yes Common normals: no apparent distress Respiratory Common normals: normal respiratory effort and clear to auscultation bilaterally Cardio Common normals: regular rate and regular rhythm GI Common normals: Normal to inspection, nondistended, normoactive bowel sounds present Extremity Common normals: no calf tenderness OB - PN: A/P Assessment and Plan (1) labor in third trimester: Qualifiers: labor delivery status: with delivery in third trimester Fetus number: single or unspecified fetus Qualified Code(s): O60.14X0 - labor third trimester with delivery third trimester, not applicable or unspecified (2) Anemia affecting fifth : (3) Gestational diabetes mellitus (GDM) affecting fifth : Plan - Vaginal Delivery day: 2 Plan: routine care, discharge home and follow up 6 weeks Time Spent with Patient Time: Total time spent is greater than 50% in coordination of care (as documented) at patient's floor/unit and/or counseling patient: Total time spent with greater than 50% in coordination of care (as documented) at patient's floor/unit and/or counseling patient: less than 15 minutes
== END 2023-06-07 14:50 | disposition home or self-care (01) | DRG 560 ==
PROVIDERS: Admitting Provider Obstetrics & Gynecology; Visit Provider Obstetrics & Gynecology Gynecology
DX: O60.14X0 Preterm labor third trimester with preterm delivery third trimester, not applicable or unspecified (principal); O36.63X0 Maternal care for excessive fetal growth, third trimester, not applicable or unspecified; Z3A.36 36 weeks gestation of pregnancy; Z37.0 Single live birth; O24.420 Gestational diabetes mellitus in childbirth, diet controlled; O99.013 Anemia complicating pregnancy, third trimester; D64.9 Anemia, unspecified; Z86.19 Personal history of other infectious and parasitic diseases; Z87.440 Personal history of urinary (tract) infections; R82.79 Other abnormal findings on microbiological examination of urine; B96.1 Klebsiella pneumoniae [K. pneumoniae] as the cause of diseases classified elsewhere
CPT/HCPCS: 36415; 59050; 59410; 76818; 80307; 81001; 85027; 86850; 86900; 86901; 87086; 87150; 87186; 95250; 96374; G0108; J2590; J2795